=== PATIENT | male | born 1940 | race Caucasian/White ===

== ENCOUNTER → 2017-01-08 | Outpatient (CLI) | payer MEDICARE ==
[~2017-01-08] MED LIST: AMLO10TA82 PO; ASP81TEC PO; CLN.1T PO; HYDR-3156 PO; LOSA100T7 PO; MAGN400C PO; METR1KIT2 TP; MULT1CAP27 PO; PROP150T2 PO; PSYL1PAC15 PO; RIVA20TA2 PO; WRF3T PO
--- NOTE | 2017-01-08 12:54 | Diagnostic Imaging Report ---
CLINICAL INDICATION: Patient with abnormal lab work. COMPARISONS: None. FINDINGS: THYROID NODULES: There is no measurable nodule seen. THYROID GLAND: The thyroid gland is diffusely heterogeneous and enlarged. Otherwise, the thyroid gland has normal shape and normal Doppler appearance. The right lobe measures 6.7 cm x 3.6 cm x 4.1 cm and the left lobe measures 5.7 cm x 2.8 cm x 3.2 cm in their three dimensions. ISTHMUS: The isthmus is heterogeneous and mildly thickened measures 5 mm in thickness. IMPRESSION: Heterogeneous and enlarged thyroid gland with no significant abnormal Doppler flow. Dictated by: Dictated on workstation # [id number]
== END ==
LOC: RAD 08:43
PROVIDERS: ATTEND Internal Medicine
DX: E04.9 Nontoxic goiter, unspecified (principal)
CPT/HCPCS: 76536

== ENCOUNTER 2017-05-25 02:35 | Inpatient (IN) | payer MEDICARE ==
[2017-05-25] VITALS (7 sets, daily range): BP systolic 124–162; BP diastolic 67–91
[~2017-05-25] VITALS: Ht 177.8 cm; Wt 82.1 kg
--- OUTSIDE RECORDS SUMMARY | 2017-05-25 02:40 | XMS REPORT ---
Author Author IVETH BOATENG Organization [employer] Address Unknown Phone Unavailable Care Team Providers Care Claim Review Medical Director Name Role Phone IVETH BOATENG CP Unavailable Allergies No Known Allergies Problems Problem Type Condition Code Onset Dates Condition Status Problem ZOSTAVAX DX V05.8 Active Problem Need for prophylactic vaccination and inoculation, Influenza V04.81 Active Medications No Known Medications Results No Known Results Summary Purpose [employer] Submission
--- OUTSIDE RECORDS SUMMARY | 2017-05-25 02:40 | XMS REPORT | Clinical Summary ---
Author Author [facility] Organization [facility] Address Unknown Phone Unavailable Care Team Providers Care Services Program Manager Name Role Phone Kota Shepard MD PCP Source Comments Some departments are not documenting in the electronic medical record. If you do not see the information that you expected, contact Release of Information in the Health Information Management department at [phone] for further assistance in locating additional records.[facility] Allergies No Known Allergies Current Medications Prescription Sig. Disp. Refills Start End Date Status Date losartan (COZAAR) 100 mg TAKE ONE TABLET BY MOUTH 30 Each 5 10/27/19 Active PO tablet EVERY DAY 10 amLODIPine (NORVASC) 10 Take 10 mg by mouth Active mg tablet daily. cloNIDine HCl (CATAPRESS) Take 0.1 mg by mouth Active 0.1 mg tablet twice daily. HYDRALAZINE HCL Take 12.5 mg by mouth Active (HYDRALAZINE PO) twice daily. metroNIDAZOLE(+) Apply to affected area Active (METROGEL) 0.75 % topical daily. gel propafenone (RYTHMOL) 150 Take 150 mg by mouth Active mg tablet three times daily. Take 1 Tab Morning, Afternnon, and Night WARFARIN SODIUM (WARFARIN Take 8 mg by mouth daily. Active PO) aspirin EC 81 mg tablet Take 81 mg by mouth Active daily. magnesium oxide (MAG-OX) Take 400 mg by mouth Active 400 mg tablet daily. PSYLLIUM SEED (WITH Take by mouth daily. Active SUGAR) (METAMUCIL PO) Active Problems Problem Noted Date Typical atrial flutter (HCC) 07/05/2015 Essential hypertension 07/04/2015 PAF (paroxysmal atrial fibrillation) ([facility]) 07/04/2015 Overview: a. Has never undergone a cardioversion. b. Previously placed on sotalol as well as metoprolol. c. Last 2-D echocardiogram with Doppler done in 2006 showed normal LV function with an estimated ejection fraction of 60 percent. His left atrial size was Noted to be 3.92 cm, which was read as normal. There was mild mitral regurgitation present and no other abnormalities seen. PA pressure was 35 mmHg. d. Nuclear stress test done in 2006 that revealed normal LV function, estimated ejection fraction of 65 percent. No segmental wall motion abnormalities were seen.The patient exercised for 9 minutes 55 seconds, achieving 100 percent of maximum expected heart rate. There was no reversible ischemia seen. E. 03/20/09-Exercise Echo- EF 60%; Was Negative for Ischemia; trace MR; trace DE; trace AR; trace TR; 25 mmHg PAP; normal diastolic function Essential tremor 07/04/2015 Mixed hyperlipidemia 07/04/2015 Social History Tobacco Use Types Packs/Day Years Used Date Never Assessed Sex Assigned at Date Recorded Not on file Last Filed Vital Signs Vital Sign Reading Time Taken Blood Pressure 116/74 07/05/2015 8:56 AM CDT Pulse 57 07/05/2015 8:56 AM CDT Temperature - - Respiratory Rate - - Oxygen Saturation - - Inhaled Oxygen - - Concentration Weight 80.5 kg (177 lb 6.4 oz) 07/05/2015 8:56 AM CDT Height 177.8 cm (5' 10") 07/05/2015 8:56 AM CDT Body Mass Index 25.45 07/05/2015 8:56 AM CDT Plan of Treatment Health Maintenance Due Date Last Done Comments PHYSICAL (COMPREHENSIVE) 08/14/1947 EXAM PERTUSSIS VACCINE 08/14/1951 TETANUS VACCINE 1957 SHINGLES VACCINE 2000 PREVNAR/PNEUMOVAX (#1) 2005 INFLUENZA VACCINE 11/17/2017 Results Not on filefrom Last 3 Months
--- OUTSIDE RECORDS SUMMARY | 2017-05-25 02:40 | XMS REPORT | Continuity of Care Document ---
Author Author [facility] Address Unknown Phone Unavailable Allergies Active Description Code Type Severity Reaction Onset Reported/Identified Relationship to Patient Clinical Status Yes No Known Drug Allergies [id number] Drug Allergy Mild N/A 11/11/2008 Medications There is no data. Problems Date Dx Coded Attending Type Code Diagnosis Diagnosed By 11/15/2011 IVETH BOATENG DO V05.8 ZOSTAVAX DX 11/15/2011 V05.8 ZOSTAVAX DX 06/03/2012 Ot 276.8 HYPOPOTASSEMIA 06/03/2012 Ot 401.9 HYPERTENSION NOS 06/03/2012 Ot 416.8 CHR PULMON HEART DIS NEC 06/03/2012 Ot 427.31 ATRIAL FIBRILLATION 06/03/2012 Ot 427.69 PREMATURE BEATS NEC 06/03/2012 Ot 794.30 ABN CARDIOVASC STUDY NOS 06/03/2012 Ot V58.61 ANTICOAGULANTS,LT,CURRENT USE 06/03/2012 Ot V58.69 OTH MED,LT, CURRENT USE 11/24/2012 OTHER, UNLISTED Ot V57.1 PHYSICAL THERAPY NEC 11/24/2012 OTHER, UNLISTED Ot V58.78 AFTERCARE POST SURGERY MUSCULOSKELETAL S 12/29/2012 IVETH BOATENG DO V04.81 FLU SHOT 02/23/2013 TERRY BEAR MD Ot V45.4 ARTHRODESIS STATUS 02/23/2013 TERRY BEAR MD Ot V57.1 PHYSICAL THERAPY NEC 11/06/2015 Ot 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 11/06/2015 Ot 397.0 TRICUSPID VALVE DISEASE 11/06/2015 Ot 401.9 HYPERTENSION NOS 11/06/2015 Ot 427.31 ATRIAL FIBRILLATION 11/06/2015 Ot 429.3 CARDIOMEGALY 11/06/2015 Ot 401.9 HYPERTENSION NOS 11/06/2015 Ot 427.31 ATRIAL FIBRILLATION 11/07/2015 FERMIN MEZA MD Ot E78.2 MIXED HYPERLIPIDEMIA 11/07/2015 FERMIN MEZA MD Ot I10 ESSENTIAL (PRIMARY) HYPERTENSION 11/07/2015 FERMIN MEZA MD Ot I48.0 PAROXYSMAL ATRIAL FIBRILLATION 11/07/2015 FERMIN MEZA MD Ot R07.9 CHEST PAIN, UNSPECIFIED 11/29/2015 FERMIN MEZA MD Ot E78.2 MIXED HYPERLIPIDEMIA 11/29/2015 FERMIN MEZA MD Ot I10 ESSENTIAL (PRIMARY) HYPERTENSION 11/29/2015 FERMIN MEZA MD Ot I48.0 PAROXYSMAL ATRIAL FIBRILLATION 11/29/2015 FERMIN MEZA MD Ot R07.9 CHEST PAIN, UNSPECIFIED 12/07/2015 FERMIN MEZA MD Ot E78.2 MIXED HYPERLIPIDEMIA 12/07/2015 FERMIN MEZA MD Ot I10 ESSENTIAL (PRIMARY) HYPERTENSION 12/07/2015 FERMIN MEZA MD Ot I48.0 PAROXYSMAL ATRIAL FIBRILLATION 12/07/2015 FERMIN MEZA MD Ot R07.9 CHEST PAIN, UNSPECIFIED 01/30/2017 LACIE AGUILAR MD Ot E04.9 NONTOXIC GOITER, UNSPECIFIED 02/05/2017 LACIE AGUILAR MD Ot E04.9 NONTOXIC GOITER, UNSPECIFIED Procedures There is no data. Results There is no data. Encounters ACCT No. Visit Date/Time Discharge Status Pt. Type Provider Facility Loc./Unit Complaint [id number] 12/29/2012 15:36:00 12/29/2012 23:59:59 CLS Outpatient KILO IVETH Oscar [id number] 11/15/2011 10:16:00 11/15/2011 23:59:59 CLS Outpatient [id number] 01/08/2017 08:43:00 01/08/2017 23:59:59 CLS Outpatient LACIE AGUILAR MD [facility] RAD ENLARGED THYROID [id number] 11/06/2015 10:49:00 11/06/2015 23:59:59 CLS Outpatient FERMIN MEZA MD [facility] CARD CHEST PAIN,HTN,PAF, PALPITATIONS [id number] 01/12/2013 08:30:00 02/23/2013 11:13:00 DIS Outpatient TERRY BEAR MD [facility] REHAB L ANKLE ARTHRODIIS [id number] 11/10/2012 08:00:00 11/24/2012 09:42:00 DIS Outpatient OTHER, UNLISTED [facility] REHAB L ANKLE ARTHRODENT [id number] 05/25/2017 02:37:00 ACT Emergency HARRISON VICENTE CONSUELO Oscar [facility] ER COUGH UP BLOOD [id number] 06/03/2012 07:01:00 Document Registration [id number] 04/15/2012 08:09:00 Document Registration [id number] 04/13/2012 08:46:00 Document Registration [id number] 12/06/2016 13:40:00 12/06/2016 23:59:59 CLS Outpatient [facility]
--- OUTSIDE RECORDS SUMMARY | 2017-05-25 02:40 | XMS REPORT ---
Author Author IVETH BOATENG [facility] [employer] Address Unknown Phone Unavailable Care Team Providers Care Medical Care Evaluation Specialist Name Role Phone IVETH BOATENG CP Unavailable Allergies No Known Allergies Problems Problem Type Condition Code Onset Dates Condition Status Problem ZOSTAVAX DX V05.8 Active Assessment Encounter for immunization Z23 Active Problem Need for prophylactic vaccination and inoculation, Influenza V04.81 Active Medications No Known Medications Procedures Procedure Coding System Code Date SINGLE IMMUNIZATION ADMIN CPT-4 50963 Jan 13, 2015 FLUARIX QUAD (3 & UP)-GSK-2014 CPT-4 06461 Jan 13, 2015 Results No Known Results Immunizations Vaccine Administration Date FLUARIX QUAD (3 & UP)-GSK-2014Jan 13, 2015 Summary Purpose eClinicalWorks Submission
[2017-05-25] MEDS ORDERED: TAMS0.4C2 PO (03:18)
[2017-05-25] MEDS ORDERED: WARF4TAB70 (03:18)
[2017-05-25 04:09] LABS: BASOPHILS % (AUTO) 1 % (0-10); EOSINOPHILS # (AUTO) 0.2 10^3/uL (0.0-0.3); EOSINOPHILS % (AUTO) 4 % (0-10); HEMATOCRIT 43 % (40-54); HEMOGLOBIN 14.8 G/DL (13.3-17.7); LYMPHOCYTES # (AUTO) 1.1 X 10^3 (1.0-4.0); LYMPHOCYTES % (AUTO) 20 % (12-44); MEAN CORPUSCULAR HEMOGLOBIN 29 PG (25-34); MEAN CORPUSCULAR HGB CONC 34 G/DL (32-36); MEAN CORPUSCULAR VOLUME 84 FL (80-99); MEAN PLATELET VOLUME 9.8 FL (7.4-10.4); MONOCYTES # (AUTO) 0.6 X 10^3 (0.0-1.0); MONOCYTES % (AUTO) 12 % (0-12); NEUTROPHILS # (AUTO) 3.5 X 10^3 (1.8-7.8); NEUTROPHILS % (AUTO) 65 % (42-75); PLATELET COUNT 157 10^3/uL (130-400); RED BLOOD COUNT 5.14 10^6/uL (4.35-5.85); RED CELL DISTRIBUTION WIDTH 13.9 % (10.0-14.5); WHITE BLOOD COUNT 5.5 10^3/uL (4.3-11.0)
[2017-05-25 04:25] LABS: INR 2.1 (0.8-1.4); PROTHROMBIN TIME PATIENT 23.3 SEC (12.2-14.7)
[2017-05-25 04:33] LABS: ALANINE AMINOTRANSFERASE 9 U/L (0-55); ALBUMIN 4.4 GM/DL (3.2-4.5); ALKALINE PHOSPHATASE 75 U/L (40-136); BILIRUBIN,TOTAL 0.7 MG/DL (0.1-1.0); BUN/CREATININE RATIO 17; CALCIUM 9.1 MG/DL (8.5-10.1); CARBON DIOXIDE 27 MMOL/L (21-32); CHLORIDE 105 MMOL/L (98-107); CREATININE SERUM 0.76 MG/DL (0.60-1.30); GFR ESTIMATED > 60; GLUCOSE 106 MG/DL (70-105); POTASSIUM 3.4 MMOL/L (3.6-5.0); SODIUM 140 MMOL/L (135-145); TOTAL PROTEIN 7.5 GM/DL (6.4-8.2)
[2017-05-25] MEDS ORDERED: cefTRIAXone INJECTION 1,000 MG in NS (IVPB) 100 ML IV ONE (06:30)
--- NOTE | 2017-05-25 06:56 | ED General ---
General Chief Complaint: Abdominal/GI Problems Stated Complaint: HEMOPTYSIS; RML/RLL INFILTRATE COUMADIN THERAPY Nursing Triage Note: pt reports coughing up blood since approx. 199905/24/17 Nursing Sepsis Screen: No Definite Risk Source of Information: Patient Exam Limitations: No Limitations History of Present Illness Date Seen by Provider: May 25, 2017 Time Seen by Provider: 03:35 Initial Comments PT STATES HE HAS BEEN COUGHING UP BLOOD SINCE Friday05/23/17 STATES HE HAS HAD "RATTLING" IN HIS CHEST FOR THE LAST 2 DAYS NO CHEST PAIN OR SHORTNESS OF BREATH NO FEVER NO SWELLING IN LEGS/ FEET OR PAIN IN CALVES NO ABDOMINAL PAIN OR NAUSEA/VOMITING NO NOSE BLEEDS OR ORAL SORES, ETC. NO DIZZINESS PT IS ON COUMADIN --LAST PROTIME WAS LAST WEEK AND STATES HIS BLOOD WAS "THICK" . BUT NO CHANGES IN DOSE NO HISTORY OF SIMILAR PCP: DR. AGUILAR SCOOPING MACHINE TENDER: DR. MEZA Allergies and Home Medications Allergies Coded Allergies: No Known Drug Allergies (Unverified , 11/11/08) Home Medications Amlodipine Besylate 10 Mg Tablet, 10 EACH PO DAILY, (Reported) Aspirin 81 Mg Tabec, 81 MG PO DAILY, (Reported) Clonidine Hcl 0.1 Mg Tab, 0.5 EACH PO DAILY, (Reported) Clonidine Hcl 0.1 Mg Tab, 0.1 MG PO HS, (Reported) Hydralazine Hcl 25 Mg Tablet, 12.5 MG PO BID, (Reported) Losartan Potassium 100 Mg Tablet, 100 MG PO DAILY, (Reported) Magnesium Oxide 400 Mg Capsule, 400 MG PO DAILY, (Reported) Metronidazole/Skin Cleansr #23 1 Each Kit.cl.gel, 1 EACH TP DAILY, (Reported) Multivitamins 1 Each Capsule, 1 EACH PO DAILY, (Reported) Propafenone Hcl 150 Mg Tablet, 150 MG PO BID, (Reported) Propafenone Hcl 150 Mg Tablet, 75 MG PO noon, (Reported) Patient Home Medication List Home Medication List Reviewed: Yes Review of Systems Constitutional: no symptoms reported, No chills, No diaphoresis, No dizziness, No fever, No malaise, No weakness EENTM: no symptoms reported, No hoarseness, No mouth pain, No epistaxis, No throat pain Respiratory: see HPI, No dyspnea on exertion, hemoptysis, No orthopnea, No short of breath, No wheezing Cardiovascular: no symptoms reported, No chest pain, No edema, No palpitations , No syncope Gastrointestinal: see HPI, No abdominal pain, No loss of appetite, No melena, No nausea, No vomiting Genitourinary: no symptoms reported Musculoskeletal: no symptoms reported Skin: no symptoms reported Psychiatric/Neurological: No Symptoms Reported Hematologic/Lymphatic: See HPI Immunological/Allergic: no symptoms reported Past Hegjcib-Ghrehw-Tttyse Hx Patient Social History Alcohol Use: Denies Use Recreational Drug Use: No Smoking Status: Never a Smoker 2nd Hand Smoke Exposure: No Recent Foreign Travel: No Contact w/Someone Who Travel: No Recent Infectious Disease Expo: No Recent Hopitalizations: No Immunizations Up To Date Date of Pneumonia Vaccine: Mar 18, 2012 Seasonal Allergies Seasonal Allergies: No Past Medical History Surgeries: Yes (hernia, cardiac ablation) Abdominal, Cardiac, Orthopedic Respiratory: No Cardiac: Yes (cardiac ablation) Atrial Fibrillation, High Cholesterol, Hypertension Neurological: No Sexually Transmitted Disease: No Genitourinary: Yes Prostate Problems Gastrointestinal: No Musculoskeletal: No Endocrine: No HEENT: No Cancer: No Psychosocial: No Integumentary: No Blood Disorders: No Physical Exam Vital Signs Vital Signs - First Documented 05/25/17 03:10 Temp 97.7 Pulse 77 Resp 16 B/P (MAP) 168/110 (129) Pulse Ox 96 O2 Delivery Room Air Capillary Refill : Less Than 3 Seconds General Appearance: No Apparent Distress, WD/WN HEENT: PERRL/EOMI, Normal ENT Inspection, Pharynx Normal, Other ( NO BLOOD IN NARES, IN MOUTH OR POSTERIOR PHARYNX. ) Neck: Full Range of Motion, Normal Inspection, Non Tender, Supple Respiratory: Normal Breath Sounds, No Accessory Muscle Use, No Respiratory Distress Cardiovascular: Regular Rate, Rhythm, No Edema, No JVD, No Murmur, Normal Peripheral Pulses Gastrointestinal: Normal Bowel Sounds, No Organomegaly, No Pulsatile Mass, Non Tender, Soft Extremity: Normal Inspection, Normal Range of Motion Neurologic/Psychiatric: Alert, Oriented x3, No Motor/Sensory Deficits, Normal Mood/Affect, banana loader II-XII Norm as Tested Skin: Normal Color, Warm/Dry Progress/Results/Core Measures Suspected Sepsis Recent Fever Within 48 Hours: No Infection Criteria Present: None New/Unexplained Altered Menta: No Sepsis Screen: No Definite Risk Sepsis Diagnosis: SIRS Temperature:97.7 Pulse: 77 Respiratory Rate: 16 Laboratory Tests 05/25/17 04:00: White Blood Count 5.5 Blood Pressure 168 /110 Mean: 129 Laboratory Tests 05/25/17 04:00: Creatinine 0.76, INR Comment 2.1H, Platelet Count 157, Total Bilirubin 0.7 Results/Orders Lab Results Laboratory Tests Test 05/25/17 04:00 Range/Units White Blood Count 5.5 4.3-11.0 10^3/uL Red Blood Count 5.14 4.35-5.85 10^6/uL Hemoglobin 14.8 13.3-17.7 G/DL Hematocrit 43 40-54 % Mean Corpuscular Volume 84 80-99 FL Mean Corpuscular Hemoglobin 29 25-34 PG Mean Corpuscular Hemoglobin Concent 34 32-36 G/DL Red Cell Distribution Width 13.9 10.0-14.5 % Platelet Count 157 130-400 10^3/uL Mean Platelet Volume 9.8 7.4-10.4 FL Neutrophils (%) (Auto) 65 42-75 % Lymphocytes (%) (Auto) 20 12-44 % Monocytes (%) (Auto) 12 0-12 % Eosinophils (%) (Auto) 4 0-10 % Basophils (%) (Auto) 1 0-10 % Neutrophils # (Auto) 3.5 1.8-7.8 X 10^3 Lymphocytes # (Auto) 1.1 1.0-4.0 X 10^3 Monocytes # (Auto) 0.6 0.0-1.0 X 10^3 Eosinophils # (Auto) 0.2 0.0-0.3 10^3/uL Basophils # (Auto) 0.0 0.0-0.1 10^3/uL Prothrombin Time 23.3 H 12.2-14.7 SEC INR Comment 2.1 H 0.8-1.4 Activated Partial Thromboplast Time 38 H 24-35 SEC Sodium Level 140 135-145 MMOL/L Potassium Level 3.4 L 3.6-5.0 MMOL/L Chloride Level 105 98-107 MMOL/L Carbon Dioxide Level 27 21-32 MMOL/L Anion Gap 8 5-14 MMOL/L Blood Urea Nitrogen 13 7-18 MG/DL Creatinine 0.76 0.60-1.30 MG/DL Estimat Glomerular Filtration Rate > 60 BUN/Creatinine Ratio 17 Glucose Level 106 H 70-105 MG/DL Calcium Level 9.1 8.5-10.1 MG/DL Total Bilirubin 0.7 0.1-1.0 MG/DL Aspartate Amino Transf (AST/SGOT) 21 5-34 U/L Alanine Aminotransferase (ALT/SGPT) 9 0-55 U/L Alkaline Phosphatase 75 40-136 U/L Total Protein 7.5 6.4-8.2 GM/DL Albumin 4.4 3.2-4.5 GM/DL My Orders Orders - CONSUELO TERRY DO Saline Lock/Iv-Start (05/25/17 03:35) Monitor-Rhythm Ecg Trace Only (05/25/17 03:35) Cbc With Automated Diff (05/25/17 03:35) Comprehensive Metabolic Panel (05/25/17 03:35) Protime With Inr (05/25/17 03:35) Partial Thromboplastin Time (05/25/17 03:35) Sputum Culture (05/25/17 03:35) Chest Pa/Lat (2 View) (05/25/17 03:35) Ct Angio Chst/Abd/Pelv W (05/25/17 04:47) Ceftriaxone Injection (Rocephin Injectio (05/25/17 06:30) Vital Signs/I&O 05/25/17 05/25/17 03:10 06:52 Temp 97.7 97.0 Pulse 77 65 Resp 16 16 B/P (MAP) 168/110 (129) 161/99 (129) Pulse Ox 96 99 O2 Delivery Room Air Room Air Capillary Refill : Less Than 3 Seconds Blood Pressure Mean: 129 Progress Note : Progress Note PT CONSTANTLY "SPITTING UP" BLOOD--AT LEAST A CUP OF LORA BLOOD, WITH A LITTLE MUCOUS, DURING ET STAY--NOT GAGGING OR VOMITING. NO DYSPNEA, AND NO ACTUAL COUGH NO DETERIORATION IN PT'S CONDITION DURING ER STAY Diagnostic Imaging Comments CXR--NO ACUTE PROCESS, PENDING RADIOLOGIST REVIEW CT CHEST AND ABDOMEN/PELVIS ANGIOGRAM--NO P.E. MILD NON-SPECIFIC GROUND GLASS OPACITIES IN RLL AND RML. POSSIBLE PULMONARY EDEMA, HEMORRHAGE OR AN ACUTE INFECTIOUS/INFLAMMATORY PROCESS. ABDOMEN/PELVIS--NO ACUTE PROCESS PER [facility] VIA FAX @ [phone] Reviewed: Reviewed by Ms Departure Communication (Admissions) [id number]--SPOKE WITH DR. NATALIE, ACCEPTS PT FOR ADMIT. WILL CONSULT DR. MALDONADO [id number]--ATTEMPTING TO CONTACT DR. MALDONADO, MESSAGE LEFT ON CELL PHONE. Impression Primary Impression: Hemoptysis Additional Impressions: RLL/RML INFILTRATE COUMADIN THERAPY Disposition: ADMITTED INPATIENT Condition: Stable Admissions Decision to Admit Reason: Admit from ER (General) Decision to Admit/Date: May 25, 2017 Time/Decision to Admit Time: 06:20 Departure-Patient Inst. Referrals: LACIE AGUILAR MD (PCP/Family) Primary Care Physician CONSUELO TERRY DO May 25, 2017 06:56
--- NOTE | 2017-05-25 06:58 | Diagnostic Imaging Report ---
INDICATION: Coughing up blood. FINDINGS: There are some patchy opacity demonstrated within the right middle lobe suggestive of infectious infiltrates. Left lung clear. Heart size normal. There is no evidence for failure. There is no effusion or pneumothorax. There are degenerative features present within the spine. IMPRESSION: 1. Patchy right pulmonary infiltrates suggests inflammatory/infectious process. Left lung appears clear. Dictated by: Dictated on workstation # [id number]
[2017-05-25] MEDS ORDERED: AZITHROMYCIN 500 MG/NS 250 ML IVPB IV NR ×2 (08:00)
[2017-05-25] MEDS ORDERED: CATHETER FLUSH 10 ML SYR IV PRN (08:00)
--- NOTE | 2017-05-25 08:37 | Diagnostic Imaging Report ---
PROCEDURE: CT angiography of the chest with contrast and CT abdomen and pelvis with contrast. TECHNIQUE: Multiple contiguous axial images were obtained through the chest, abdomen and pelvis after administration of intravenous contrast. Reconstructed MIP CT angiography acquisitions of the aorta were then performed. INDICATION: Hemoptysis. Comparison made with prior chest radiograph from May 25, 2017. FINDINGS: The thoracic aorta is normal in caliber without evidence of dissection or aneurysm. There is mild aortic atherosclerotic disease. There is no evidence of a filling defect within the pulmonary arteries to suggest pulmonary embolism. Heart size is normal. There is no pericardial effusion. There are calcified hilar and mediastinal lymph nodes but no evidence of pathologic noncalcified thoracic adenopathy. There are some ill-defined essentially groundglass nodular opacities demonstrated within the right lower lobe that have appearance most compatible with an infectious/inflammatory process. There is also small degree of involvement present within the right middle lobe. No solid pulmonary mass demonstrated. There is no effusion or evidence of a pneumothorax. Supraclavicular soft tissues demonstrate heterogeneous enlargement of the thyroid. The liver demonstrates no evidence of a focal intrahepatic abnormality. The gallbladder is nondistended without radiodense gallstones. There is no abnormal biliary dilatation. Spleen unremarkable. There is a small splenule. Pancreas demonstrates no focal abnormality. There is no adrenal mass. The kidneys demonstrate a left renal cyst and are otherwise unremarkable. The small and large bowel are normal in caliber without obstruction. There is no focal abnormal bowel thickening demonstrated. There is a large degree of stool within the colon suggesting constipation. The appendix is normal. There is no free air, free fluid or abscess. There is enlargement of the prostate. Urinary bladder unremarkable. Patient appears to have had prior hernia repair at both of the inguinal regions. There is a small residual left-sided hernia. There are multilevel degenerative endplate changes and facet arthropathy present throughout the spine but there is no evidence to suggest an acute osseous injury or suspicious marrow replacing lesion. IMPRESSION: 1. Thoracic and abdominal aorta are normal in caliber without dissection or aneurysm. 2. Inflammatory appearing infiltrate within the right lower lobe and right middle lobe. No pulmonary mass evident. 3. Calcified mediastinal and hilar lymph nodes. No pathologic thoracic adenopathy evident. 4. No evidence of pulmonary embolus. 5. Heterogeneous enlargement of the thyroid. 6. No acute inflammatory or obstructive process within the abdomen or pelvis. There is a large degree of stool within the colon suggesting constipation. Note is made of enlargement of the prostate. 7. Multilevel degenerative changes within the spine without acute or suspicious osseous abnormality. Dictated by: Dictated on workstation # [id number]
--- NOTE | 2017-05-25 11:14 | History & Physical-Hospitalist ---
History of Present Illness HPI/Chief Complaint Pt is a 76yoCM with a PMH of HTN and a-fib on chronic anticoagulation who presented to the ER with CC of hemoptysis. He states he was at a concert on 05/23 evening and noticed he developed a cough. It continued to worsen and then started to cough up "hunks of blood" on the evening of 05/24. It continued throughout the night and he was coughing up cups at a time. He ultimately decided to seek evaluation in the ER for this. A CT chest was done which revealed right sided infiltrate with infalmmatory changes. He denies any history of hemoptysis. He is a former smoker but quit 37 years ago (previously smoked 3ppd). He denies any fevers or sick contacts. He was admitted for antibiotics and further evaluation of hemoptysis. This morning he states he is feeling better and his hemoptysis has decreased significantly. Of note he was told on 05/19 that his INR was low at 1.8 so he had been taking an extra 4mg with his daily 8mg dose to help rise it. Source: patient, family Date Seen 05/25/17 Time Seen by Provider: 10:15 Attending Physician Micky Colvin MD PCP Micky Colvin MD Referring Physician Date of Admission May 25, 2017 at 6:20 am Home Medications & Allergies Home Medications Reviewed patient Home Medication Reconciliation performed by pharmacy medication reconciliations c2 tactical analysis technician and/or nursing. Patients Allergies have been reviewed. Allergies Allergies Coded Allergies No Known Drug Allergies (Unverified05/25/17) Past Dpceunw-Rzwtpc-Agtvlm Hx Past Med/Social Hx: Reviewed Nursing Past Med/Soc Hx, Reviewed and Corrections made Patient Social History Marrital Status: Alcohol Use: Denies Use Recreational Drug Use: No Smoking Status: Former Smoker Former Smoker, Quit: July 07, 1979 Type Used: Cigarettes 2nd Hand Smoke Exposure: No Physical Abuse Screen: No Sexual Abuse: No Recent Foreign Travel: No Contact w/other who traveled: No Recent Hopitalizations: No Recent Infectious Disease Expo: No Immunizations Up To Date Date of Pneumonia Vaccine: Mar 18, 2012 Seasonal Allergies Seasonal Allergies: No Past Medical History Surgeries: Abdominal, Cardiac, Orthopedic Cardiac: Atrial Fibrillation, High Cholesterol, Hypertension Sexually Transmitted Disease: No Genitourinary: Prostate Problems Gastrointestinal: Abdominal Hernia, Ulcer History of Blood Disorders: No Family History Cardiovascular disease 19 FATHER 19 MOTHER Dementia 19 MOTHER FH: gastric ulcer 19 FATHER Thyroid disease DAUGHTER Heart Disease Review of Systems Constitutional: No chills, No fever EENTM: No blurred vision, No double vision, No nose congestion, No throat pain Respiratory: cough, No dyspnea on exertion, hemoptysis, No short of breath Cardiovascular: No chest pain, No edema, No palpitations Gastrointestinal: No abdominal pain, No constipation, No diarrhea, No nausea, No vomiting Genitourinary: No dysuria, No frequency Musculoskeletal: No joint pain, No muscle pain Skin: No lesions, No rash Psychiatric/Neurological: Denies Headache, Denies Numbness, Denies Tingling All Other Systems Reviewed Negative Unless Noted: Yes (Negative excepted noted.) Physical Exam Physical Exam Vital Signs Vital Signs - First Documented 05/25/17 05/25/17 03:10 11:02 Temp 97.7 Pulse 77 Resp 16 B/P (MAP) 168/110 (129) Pulse Ox 96 O2 Delivery Room Air FiO2 21 Capillary Refill : Less Than 3 Seconds General Appearance: No Apparent Distress, WD/WN HEENT: PERRL/EOMI, Moist Mucous Membranes Neck: Non Tender, Supple Respiratory: No Accessory Muscle Use, No Respiratory Distress, Crackles (right base) Cardiovascular: Regular Rate, Rhythm, No Murmur Gastrointestinal: Normal Bowel Sounds, Non Tender, Soft Extremity: Normal Capillary Refill, No Calf Tenderness, No Pedal Edema Neurologic/Psychiatric: Alert, Oriented x3, No Motor/Sensory Deficits, Normal Mood/Affect Skin: Normal Color, Warm/Dry Results Results/Procedures Labs Laboratory Tests 05/25/17 04:00 Patient resulted labs reviewed. Imaging: Reviewed Imaging Films, Reviewed Imaging Report Imaging Date of Exam: 05/25/17 CT ANGIO CHST/ABD/PELV W PROCEDURE: CT angiography of the chest with contrast and CT abdomen and pelvis with contrast. TECHNIQUE: Multiple contiguous axial images were obtained through the chest, abdomen and pelvis after administration of intravenous contrast. Reconstructed MIP CT angiography acquisitions of the aorta were then performed. INDICATION: Hemoptysis. Comparison made with prior chest radiograph from May 25, 2017. FINDINGS: The thoracic aorta is normal in caliber without evidence of dissection or aneurysm. There is mild aortic atherosclerotic disease. There is no evidence of a filling defect within the pulmonary arteries to suggest pulmonary embolism. Heart size is normal. There is no pericardial effusion. There are calcified hilar and mediastinal lymph nodes but no evidence of pathologic noncalcified thoracic adenopathy. There are some ill-defined essentially groundglass nodular opacities demonstrated within the right lower lobe that have appearance most compatible with an infectious/inflammatory process. There is also small degree of involvement present within the right middle lobe. No solid pulmonary mass demonstrated. There is no effusion or evidence of a pneumothorax. Supraclavicular soft tissues demonstrate heterogeneous enlargement of the thyroid. The liver demonstrates no evidence of a focal intrahepatic abnormality. The gallbladder is nondistended without radiodense gallstones. There is no abnormal biliary dilatation. Spleen unremarkable. There is a small splenule. Pancreas demonstrates no focal abnormality. There is no adrenal mass. The kidneys demonstrate a left renal cyst and are otherwise unremarkable. The small and large bowel are normal in caliber without obstruction. There is no focal abnormal bowel thickening demonstrated. There is a large degree of stool within the colon suggesting constipation. The appendix is normal. There is no free air, free fluid or abscess. There is enlargement of the prostate. Urinary bladder unremarkable. Patient appears to have had prior hernia repair at both of the inguinal regions. There is a small residual left-sided hernia. There are multilevel degenerative endplate changes and facet arthropathy present throughout the spine but there is no evidence to suggest an acute osseous injury or suspicious marrow replacing lesion. IMPRESSION: 1. Thoracic and abdominal aorta are normal in caliber without dissection or aneurysm. 2. Inflammatory appearing infiltrate within the right lower lobe and right middle lobe. No pulmonary mass evident. 3. Calcified mediastinal and hilar lymph nodes. No pathologic thoracic adenopathy evident. 4. No evidence of pulmonary embolus. 5. Heterogeneous enlargement of the thyroid. 6. No acute inflammatory or obstructive process within the abdomen or pelvis. There is a large degree of stool within the colon suggesting constipation. Note is made of enlargement of the prostate. 7. Multilevel degenerative changes within the spine without acute or suspicious osseous abnormality. Assessment/Plan Admission Diagnosis Hemoptysis with pneumonia Admission Status: Inpatient Order (span 2 midnights) Reason for Inpatient Admission: significant hemoptysis with pneumonia, needs IV abx Diagnosis/Problems Diagnosis/Problems (1) Hemoptysis Status: Acute Assessment & Plan: Slowing Pulm consulted, appreciate recs Hold Warfarin Check INR in AM Discussed with patient's son Dallas (Cardiothoracic Surgeon in [place])- request all records to be sent to him (2) Pneumonia Status: Acute Assessment & Plan: Continue Rocephin and Azithro Sputum culture ordered Qualifiers: Pneumonia type: due to unspecified organism Laterality: right Lung location: lower lobe of lung Qualified Codes: J18.1 - Lobar pneumonia, unspecified organism (3) Essential (primary) hypertension Status: Chronic Assessment & Plan: BP within goal for age Home medications resumed (4) Atrial fibrillation Status: Chronic Assessment & Plan: On assisted anticoagulation with Warfarin Dr Marina consulted, appreciate recs Qualifiers: Atrial fibrillation type: chronic Qualified Codes: I48.2 - Chronic atrial fibrillation (5) Prophylactic measure Assessment & Plan: SCDs Reg Diet Saline lock Clinical Quality Measures DVT/VTE Risk/Contraindication: Risk Factor Score Per Nursin RFS Level Per Nursing on Admit: 3=High JASON ESTRADA MD May 25, 2017 11:14 am
[2017-05-25] MEDS ORDERED: RT-ALBUTEROL/IPRATROPIUM 3 ML (DUONEB) VIAL INH PRN (11:15)
--- NOTE | 2017-05-25 11:42 | Consultation-Cardiology ---
HPI-Cardiology Cardiology Consultation Date of Consultation 05/25/17 Date of Admission Time Seen by Provider: 11:37 Indication: hemoptysis HPI 76 years old gentleman with history of paroxysmal atrial fibrillation maintained on oral anticoagulation, has been doing well until yesterday when he started having hemoptysis with cough. reported feeling burning sensation in the retrosternal area, denied any palpitation, syncope or near-syncopal episode , patient was admitted, noted to have INR of 2.1. Right pulmonary infiltrate, started on antibiotic and feeling better, reporting improvement in his hemoptysis. Home Medications & Allergies Allergies: Coded Allergies: No Known Drug Allergies (Unverified , 05/25/17) Home Medication List Reviewed: Yes ZJP-Egllkj-Yrpjol Hx Patient Social History Marital Status: Employed/Student: retired Alcohol Use: Denies Use Recreational Drug Use: No Smoking Status: Former Smoker Type Used: Cigarettes 2nd Hand Smoke Exposure: No Recent Foreign Travel: No Recent Infectious Disease Expo: No Recent Hopitalizations: No Physical Abuse Screen: No Sexual Abuse: No Immunizations Up To Date Date of Pneumonia Vaccine: Mar 18, 2012 Past Medical History past medical history is discussed below Family Medical History Family History: 19 FATHER Cardiovascular disease FH: gastric ulcer 19 MOTHER Cardiovascular disease Dementia DAUGHTER Thyroid disease Constitutional: no symptoms reported, see HPI EENTM: see HPI, no symptoms reported Respiratory: see HPI, cough, No dyspnea on exertion, hemoptysis, No orthopnea, No phlegm, No short of breath, No stridor, No wheezing, No other Cardiovascular: see HPI, No chest pain, No edema, No Hx of Intervention, No palpitations, No syncope, No vascular heart diseas, No other Gastrointestinal: no symptoms reported, see HPI Genitourinary: no symptoms reported, see HPI Musculoskeletal: no symptoms reported, see HPI Skin: no symptoms reported, see HPI Psychiatric/Neurological: No Symptoms Reported, See HPI Reviewed Test Results Reviewed Test Results Lab Laboratory Tests Test 05/25/17 04:00 Range/Units White Blood Count 5.5 4.3-11.0 10^3/uL Red Blood Count 5.14 4.35-5.85 10^6/uL Hemoglobin 14.8 13.3-17.7 G/DL Hematocrit 43 40-54 % Mean Corpuscular Volume 84 80-99 FL Mean Corpuscular Hemoglobin 29 25-34 PG Mean Corpuscular Hemoglobin Concent 34 32-36 G/DL Red Cell Distribution Width 13.9 10.0-14.5 % Platelet Count 157 130-400 10^3/uL Mean Platelet Volume 9.8 7.4-10.4 FL Neutrophils (%) (Auto) 65 42-75 % Lymphocytes (%) (Auto) 20 12-44 % Monocytes (%) (Auto) 12 0-12 % Eosinophils (%) (Auto) 4 0-10 % Basophils (%) (Auto) 1 0-10 % Neutrophils # (Auto) 3.5 1.8-7.8 X 10^3 Lymphocytes # (Auto) 1.1 1.0-4.0 X 10^3 Monocytes # (Auto) 0.6 0.0-1.0 X 10^3 Eosinophils # (Auto) 0.2 0.0-0.3 10^3/uL Basophils # (Auto) 0.0 0.0-0.1 10^3/uL Prothrombin Time 23.3 H 12.2-14.7 SEC INR Comment 2.1 H 0.8-1.4 Activated Partial Thromboplast Time 38 H 24-35 SEC Sodium Level 140 135-145 MMOL/L Potassium Level 3.4 L 3.6-5.0 MMOL/L Chloride Level 105 98-107 MMOL/L Carbon Dioxide Level 27 21-32 MMOL/L Anion Gap 8 5-14 MMOL/L Blood Urea Nitrogen 13 7-18 MG/DL Creatinine 0.76 0.60-1.30 MG/DL Estimat Glomerular Filtration Rate > 60 BUN/Creatinine Ratio 17 Glucose Level 106 H 70-105 MG/DL Calcium Level 9.1 8.5-10.1 MG/DL Total Bilirubin 0.7 0.1-1.0 MG/DL Aspartate Amino Transf (AST/SGOT) 21 5-34 U/L Alanine Aminotransferase (ALT/SGPT) 9 0-55 U/L Alkaline Phosphatase 75 40-136 U/L Total Protein 7.5 6.4-8.2 GM/DL Albumin 4.4 3.2-4.5 GM/DL Physical Exam Vital Signs Vital Signs - First Documented 05/25/17 05/25/17 03:10 11:02 Temp 97.7 Pulse 77 Resp 16 B/P (MAP) 168/110 (129) Pulse Ox 96 O2 Delivery Room Air FiO2 21 Capillary Refill : Less Than 3 Seconds General Appearance: No Apparent Distress, WD/WN Eyes: Bilateral Eye Normal Inspection, Bilateral Eye PERRL, Bilateral Eye EOMI HEENT: PERRL/EOMI, TMs Normal, Normal ENT Inspection, Pharynx Normal Neck: Full Range of Motion, Normal Inspection, Non Tender, Supple, Carotid Bruit Respiratory: Chest Non Tender, Lungs Clear, Normal Breath Sounds, No Accessory Muscle Use, No Respiratory Distress Cardiovascular: Regular Rate, Rhythm, No Edema, No Gallop, No JVD, No Murmur, Normal Peripheral Pulses Gastrointestinal: Normal Bowel Sounds, No Organomegaly, No Pulsatile Mass, Non Tender, Soft Back: Normal Inspection, No CVA Tenderness, No Vertebral Tenderness Extremity: Normal Capillary Refill, Normal Inspection, Normal Range of Motion, Non Tender, No Calf Tenderness, No Pedal Edema Neurologic/Psychiatric: Alert, Oriented x3, No Motor/Sensory Deficits, Normal Mood/Affect Skin: Normal Color, Warm/Dry Lymphatic: No Adenopathy A/P-Cardiology Admission Diagnosis Hemoptysis Pneumonia Persistent atrial fibrillation Chest pain nonspecific etiology Assessment/Plan Hemoptysis, right pulmonary infiltrate, started on antibiotic and Coumadin is on hold. Continue to monitor, reporting improvement. Pneumonia, started on Rocephin and azithromycin. Managed by primary care physician Paroxysmal atrial fibrillation-status post atrial fibrillation/flutter ablation with Dr. Saleh in January 2016. he underwent pulmonary vein isolation in addition atrial flutter ablation but he had 4 morphologies of atrial flutter and Dr. Saleh was unable to ablate them all, he was treated with propafenone, currently he is off propafenone and he is feeling well. No palpitation was noted, continue to hold Coumadin Chronic Coumadin therapy, INR 2.1, discontinue Coumadin for now, continue to monitor telemetry. X Chest pain nonspecific etiology. Continue to monitor at this time. Cardiac catheterization was done in May 2012 showing mild coronary artery disease nonobstructive disease. Continue to monitor Hypertension, on multiple medication, restart medication monitor. BPH, on Flomax and feeling better Hyperlipidemia, continue to monitor lipids Pulmonary hypertension-PA pressure 45 mm mercury per 2-D echocardiogram March 2012, I will repeat 2-D echocardiogram Mild bilateral carotid stenosis, ultrasound was done September 2016, continue to monitor Clinical Quality Measures DVT/VTE Risk/Contraindication: Risk Factor Score Per Nursin RFS Level Per Nursing on Admit: 3=High FERMIN MEZA MD May 25, 2017 11:42
[2017-05-25] MEDS: LOSARTAN 50 MG (COZAAR) TAB PO SCH (12:29)
[2017-05-25] MEDS: amLODIPine 10 MG (NORVASC) TAB PO SCH (12:30)
[2017-05-25] MEDS ORDERED: ANTACID SUSP 30 ML UDC (MYLANTA) PO PRN (13:15)
[2017-05-25] MEDS ORDERED: ACETAMINOPHEN 500 MG TAB (TYLENOL) PO PRN (13:15)
[2017-05-25] MEDS ORDERED: MILK OF MAGNESIA 400 MG/5 ML 30 ML UDC PO PRN (13:15)
[2017-05-25] MEDS ORDERED: ONDANSETRON 4 MG/2 ML (SDV) Z0FRAN IV PRN (13:15)
[2017-05-25] MEDS ORDERED: BENZONATATE 100 MG (TESSALON) CAPSULE PO PRN (13:15)
[2017-05-25] MEDS ORDERED: ACETAMINOPHEN 325 MG TABLET/CAPLET (TYLENOL) PO PRN (13:30)
[2017-05-25] MEDS ORDERED: ASPI-983 PO (16:15)
[2017-05-25] MEDS ORDERED: METR45GE9 TP (16:15)
[2017-05-25] MEDS ORDERED: AMLO10TA2 PO (16:15)
[2017-05-25] MEDS ORDERED: CLON0.1T PO (16:15)
[2017-05-25] MEDS ORDERED: MAGN400T6 PO (16:15)
[2017-05-25] MEDS ORDERED: PROP150T2 PO (16:15)
[2017-05-25] MEDS ORDERED: HYDR-3923 PO (16:15)
[2017-05-25] MEDS ORDERED: MULT1TAB69 PO (16:15)
[2017-05-25] MEDS ORDERED: LOSA100T28 PO (16:15)
[2017-05-25] MEDS ORDERED: TAMSULOSIN 0.4 MG (FLOMAX) CAP PO SCH (18:00)
[2017-05-25] MEDS: CATHETER FLUSH 10 ML SYR IV SCH ×2 (19:02→21:42)
[2017-05-25] MEDS: RT-ALBUTEROL/IPRATROPIUM 3 ML (DUONEB) VIAL INH SCH (20:14)
[2017-05-25] MEDS ORDERED: cloNIDine 0.1 MG (CATAPRES) TAB PO SCH (21:00)
[2017-05-25] MEDS: cloNIDine 0.1 MG (CATAPRES) TAB PO SCH (21:42)
[2017-05-25] MEDS: hydrALAZINE (APRESOLINE) 25 MG TAB PO SCH (21:42)
[2017-05-26 04:10] VITALS: BP 143/87
[2017-05-26 05:30] LABS: BASOPHILS % (AUTO) 0 % (0-10); EOSINOPHILS # (AUTO) 0.2 10^3/uL (0.0-0.3); EOSINOPHILS % (AUTO) 3 % (0-10); HEMATOCRIT 42 % (40-54); HEMOGLOBIN 14.5 G/DL (13.3-17.7); LYMPHOCYTES # (AUTO) 1.2 X 10^3 (1.0-4.0); LYMPHOCYTES % (AUTO) 24 % (12-44); MEAN CORPUSCULAR HEMOGLOBIN 30 PG (25-34); MEAN CORPUSCULAR HGB CONC 35 G/DL (32-36); MEAN CORPUSCULAR VOLUME 85 FL (80-99); MONOCYTES # (AUTO) 0.6 X 10^3 (0.0-1.0); MONOCYTES % (AUTO) 12 % (0-12); NEUTROPHILS % (AUTO) 60 % (42-75); PLATELET COUNT 169 10^3/uL (130-400); RED BLOOD COUNT 4.91 10^6/uL (4.35-5.85)
[2017-05-26 05:48] LABS: INR 1.7 (0.8-1.4); PROTHROMBIN TIME PATIENT 20.1 SEC (12.2-14.7)
[2017-05-26 05:50] LABS: ALANINE AMINOTRANSFERASE 9 U/L (0-55); ALBUMIN 4.2 GM/DL (3.2-4.5); ALKALINE PHOSPHATASE 69 U/L (40-136); BUN/CREATININE RATIO 17; CALCIUM 9.3 MG/DL (8.5-10.1); CARBON DIOXIDE 26 MMOL/L (21-32); CHLORIDE 103 MMOL/L (98-107); CHOLESTEROL 159 MG/DL (< 200); CREATININE SERUM 0.83 MG/DL (0.60-1.30); GFR ESTIMATED > 60; GLUCOSE 100 MG/DL (70-105); HDL CHOLESTEROL 43 MG/DL (40-60); POTASSIUM 3.7 MMOL/L (3.6-5.0); SODIUM 139 MMOL/L (135-145); TOTAL PROTEIN 6.9 GM/DL (6.4-8.2); TRIGLYCERIDES 82 MG/DL (<150); VLDL CHOLESTEROL 16 MG/DL (5-40)
[2017-05-26] MEDS: CATHETER FLUSH 10 ML SYR IV SCH (06:30)
--- NOTE | 2017-05-26 06:40 | Pulmonary Consultation ---
History of Present Illness History of Present Illness Date of Consultation 05/26/17 06:35 Time Seen by Provider: 06:35 Date of Admission Reason for Visit: hemoptysis History of Present Illness 76yo with hx of Afib and is on chronic anticoagulation presented to ED secondary to coughing and hemoptysis. Ct scan was done and showed inflammation. No prior episodes of hemoptysis. He quit smoking 37yrs ago. Hemoptysis has improved since admission. I am consulted for pulmonary management. Allergies and Home Medications Allergies Coded Allergies: No Known Drug Allergies (Unverified , 05/25/17) Home Medications Amlodipine Besylate 10 Mg Tablet, 10 MG PO DAILY, (Reported) Aspirin 81 Mg Tablet.dr, 81 MG PO DAILY, (Reported) Clonidine HCl 0.1 Mg Tablet, 0.05 MG PO BID, (Reported) Hydralazine HCl 25 Mg Tablet, 12.5 MG PO BID, (Reported) Losartan Potassium 100 Mg Tablet, 100 MG PO DAILY, (Reported) Magnesium Oxide 400 Mg Tablet, 400 MG PO DAILY, (Reported) Metronidazole 45 Gm Gel..gram., TP DAILY PRN for RASH, (Reported) APPLIES TO FACE Multivitamin 1 Each Tablet, 1 TAB PO DAILY, (Reported) Propafenone HCl 150 Mg Tablet, 150 MG PO 0800,1500,2200, (Reported) Tamsulosin HCl 0.4 Mg Cap.er.24h, 0.4 MG PO HS, (Reported) Past Hrxkhce-Ixijfv-Xbullg Hx Past Med/Social Hx: Reviewed Nursing Past Med/Soc Hx, Reviewed and Corrections made Patient Social History Alcohol Use: Denies Use Recreational Drug Use: No Smoking Status: Former Smoker Type Used: Cigarettes Former Smoker, Quit: July 07, 1979 2nd Hand Smoke Exposure: No Recent Foreign Travel: No Contact w/Someone Who Travel: No Recent Infectious Disease Expo: No Recent Hopitalizations: No Immunizations Up To Date Date of Pneumonia Vaccine: Mar 18, 2012 Seasonal Allergies Seasonal Allergies: No Past Medical History Surgeries: Yes (hernia, cardiac ablation) Abdominal, Cardiac, Orthopedic Respiratory: No Cardiac: Yes (cardiac ablation) Atrial Fibrillation, High Cholesterol, Hypertension Neurological: No Sexually Transmitted Disease: No Genitourinary: Yes Prostate Problems Gastrointestinal: Yes Abdominal Hernia, Ulcer Musculoskeletal: No Endocrine: No HEENT: No Cancer: No Psychosocial: No Integumentary: No Blood Disorders: No Family Medical History Cardiovascular disease 19 FATHER 19 MOTHER Dementia 19 MOTHER FH: gastric ulcer 19 FATHER Thyroid disease DAUGHTER Heart Disease Review of Systems Time Seen by Provider: 07:44 Constitutional: No: Fever, Chills, Sweats, Weakness, Malaise, Other Eyes: No: Pain, Vision change, Conjunctivae inflammation, Eyelid inflammation, Other, Redness ENT: No: Ear pain, Ear discharge, Nose pain, Nose discharge, Nose congestion, Mouth pain, Mouth swelling, Throat pain, Throat swelling, Other Respiratory: Cough, Dry, Hemoptysis, No: Shortness of breath, SOB with excertion, Wheezing, Pleuritic Pain, Sputum, Wheezing, Other Cardiovascular: No: Chest Pain, Palpitations, Orthopnea, Paroxysmal Noc. Dyspnea, Edema, Lt Headedness, Other Gastrointestinal: No: Nausea, Vomiting, Abdominal Pain, Diarrhea, Constipation , Melena, Hematochezia, Other Exam Exam Vital Signs Date Time Temp Pulse Resp B/P (MAP) Pulse Ox O2 Delivery O2 Flow Rate FiO2 05/26/17 04:10 98.0 73 17 143/87 (105) 96 Room Air 05/26/17 01:00 61 05/25/17 23:07 97.5 72 16 124/69 (87) 99 Room Air 05/25/17 20:30 Room Air 05/25/17 20:14 96 Room Air 05/25/17 20:00 97.4 73 16 137/84 (101) 98 Room Air 05/25/17 19:00 71 05/25/17 15:43 97.8 65 18 162/91 (114) 98 Room Air 05/25/17 13:00 80 05/25/17 11:13 97.9 62 18 156/72 (100) 97 Room Air 05/25/17 11:02 56 96 21 05/25/17 09:20 66 05/25/17 08:50 98.2 56 18 154/67 (96) 96 Room Air 05/25/17 07:00 96.9 67 16 155/83 (107) 97 Room Air 05/25/17 07:00 Room Air 05/25/17 06:52 97.0 65 16 161/99 (129) 99 Room Air I & O 05/26/17 07:00 Intake Total 1050 ml Output Total 2 ml Balance 1048 ml General Appearance: No Apparent Distress, WD/WN HEENT: PERRL/EOMI, Moist Mucous Membranes Neck: Non Tender, Supple Respiratory: No Accessory Muscle Use, No Respiratory Distress, Crackles (right base) Cardiovascular: Regular Rate, Rhythm, No Murmur Capillary Refill: Less Than 3 Seconds Extremity: Normal Capillary Refill, No Calf Tenderness, No Pedal Edema Neurologic/Psychiatric: Alert, Oriented x3, No Motor/Sensory Deficits, Normal Mood/Affect Skin: Normal Color, Warm/Dry Lymphatic: No Adenopathy Results Lab Laboratory Tests 05/25/17 04:00 05/26/17 05:20 Assessment/Plan Assessment/Plan Hemoptysis - resolved -Doubt vasculitis -No anemia and Hb is stable -Warfarin is on hold - INR on admission was 2.1 -No obvious reason for hemoptysis - No supratheraputic INR, PNA, coughing, trauma, etc. -I recommend proceeding with bronchoscopy. Will schedule for Wed. I discussed with patient risk vs benefits of procedure. Pt can go home and come back as out patient for bronch. Pulmonary infiltration RML - No leukocytosis, no fever. PNA vs pulmonary hemorrhage -Monitor -Pt is on Rocephin and Azithromycin Hx of tobacco use -No wt loss, no hx of previous cancer Afib hx - currently in sinus -Home Warfarin is on hold -Cardiology consulted I discussed with Dr. Marina and he agrees with pt having diagnostic bronchoscopy. 255 TK MALDONADO DO May 26, 2017 06:40
[2017-05-26] MEDS: RT-ALBUTEROL/IPRATROPIUM 3 ML (DUONEB) VIAL INH SCH (07:36)
--- NOTE | 2017-05-26 08:05 | Diagnostic Imaging Report ---
INDICATION: Hemoptysis. Infiltrate. COMPARISON: 05/25/2017 FINDINGS: Frontal and lateral views of the chest demonstrate normal heart size and pulmonary vascularity. The lungs are clear. There are no signs of infiltrate, pleural effusions or pneumothoraces. The visualized osseous structures show no acute abnormalities. IMPRESSION: 1. No acute process. No signs of infiltrates, effusions or pneumothoraces. Dictated by: Dictated on workstation # [id number]
[2017-05-26] MEDS: hydrALAZINE (APRESOLINE) 25 MG TAB PO SCH (08:14)
[2017-05-26] MEDS: LOSARTAN 50 MG (COZAAR) TAB PO SCH (08:14)
[2017-05-26] MEDS: amLODIPine 10 MG (NORVASC) TAB PO SCH (08:14)
[2017-05-26] MEDS: cloNIDine 0.1 MG (CATAPRES) TAB PO SCH (08:14)
--- NOTE | 2017-05-26 08:46 | Cardiology Progress Note ---
Subjective Date Seen by Provider: May 26, 2017 Time Seen by Provider: 08:44 Subjective/Events-last exam Patient is sitting up in bed, no new complaints. Denies any CP or dyspnea. Asking to go home. Review of Systems General: No Night Sweats, No Fatigue, No Malaise HEENT: No Visual Changes, No Dysphasia, No Sore Throat Pulmonary: No Dyspnea, No Cough Cardiovascular: No: Chest Pain, Edema Gastrointestinal: No: Nausea, Vomiting, Diarrhea, Constipation Genitourinary: No Dysuria Musculoskeletal: No: neck pain, back pain Neurological: No: Weakness, Numbness, Change in speech, Confusion Objective-Cardiology Exam Last Set of Vital Signs Vital Signs 05/25/17 05/26/17 05/26/17 05/26/17 11:02 04:10 07:00 07:36 Temp 98.0 Pulse 61 Resp 17 B/P (MAP) 143/87 (105) Pulse Ox 96 O2 Delivery Room Air FiO2 21 Capillary Refill : Less Than 3 Seconds I&O Intake and Output 05/26/17 00:00 Intake Total 1050 ml Output Total 2 ml Balance 1048 ml Intake Oral 800 ml IV Total 250 ml Output Urine Total 2 ml # Voids 3 # Bowel Movements 1 Daily Weight Change No General: Alert, Oriented X3, Cooperative HEENT: Atraumatic, PERRLA Neck: Supple, No JVD, No Thyromegaly Lungs: Clear to Auscultation, Normal Air Movement Heart: Regular Rate, Normal S1, Normal S2, No Murmurs Abdomen: Normal Bowel Sounds, Soft, No Tenderness, No Hepatosplenomegaly, No Masses Extremities: No Clubbing, No Cyanosis, No Edema, Normal Pulses, No Tenderness/ Swelling Skin: No Rashes, No Breakdown, No Significant Lesion Neuro: Normal Gait, Normal Speech, Strength at 5/5 X4 Ext, Normal Tone, Sensation Intact Psych/Mental Status: Mental Status NL, Mood NL Results Lab Laboratory Tests 05/26/17 05:20 A/P-Cardiology Admission Diagnosis Hemoptysis Pneumonia Persistent atrial fibrillation Chest pain nonspecific etiology Assessment/Plan Hemoptysis, right pulmonary infiltrate, started on antibiotic and Coumadin is on hold. Continue to monitor, reporting improvement. Dr. Barbosa managing. Planning for diagnostic bronchoscopy as outpatient on Friday. Pneumonia, started on Rocephin and azithromycin. Managed by primary care physician Paroxysmal atrial fibrillation-status post atrial fibrillation/flutter ablation with Dr. Saleh in January 2016. he underwent pulmonary vein isolation in addition atrial flutter ablation but he had 4 morphologies of atrial flutter and Dr. Saleh was unable to ablate them all, he was treated with propafenone, currently he is off propafenone and he is feeling well. No palpitation was noted, continue to hold Coumadin Chronic Coumadin therapy, INR 2.1, discontinue Coumadin for now, continue to monitor telemetry. X Chest pain nonspecific etiology. Continue to monitor at this time. Cardiac catheterization was done in May 2012 showing mild coronary artery disease nonobstructive disease. Continue to monitor Hypertension, on multiple medication, restart medication monitor. BPH, on Flomax and feeling better Hyperlipidemia, continue to monitor lipids Pulmonary hypertension-PA pressure 45 mm mercury per 2-D echocardiogram March 2012,results of repeat 2D Echo pending. Mild bilateral carotid stenosis, ultrasound was done September 2016, continue to monitor Clinical Quality Measures DVT/VTE Risk/Contraindication: Risk Factor Score Per Nursin RFS Level Per Nursing on Admit: 3=High YEVGENIY MCCORD May 26, 2017 08:46
[2017-05-26 09:00] VITALS: BP 143/67
[2017-05-26] MEDS ORDERED: TAMSULOSIN 0.4 MG (FLOMAX) CAP PO SCH (09:00)
[2017-05-26] MEDS ORDERED: AZITHROMYCIN 250 MG TAB (ZITHROMAX) PO SCH (09:00)
[2017-05-26] MEDS ORDERED: cloNIDine 0.1 MG (CATAPRES) TAB PO SCH (09:00)
[2017-05-26] MEDS ORDERED: cefTRIAXone 1 GM/NS 100 ML IVPB IV SCH ×2 (09:00)
[2017-05-26] MEDS ORDERED: amLODIPine 10 MG (NORVASC) TAB PO SCH (09:00)
--- NOTE | 2017-05-26 09:48 | Cardiology Progress Note ---
Subjective Date Seen by Provider: May 26, 2017 Time Seen by Provider: 09:45 Subjective/Events-last exam patient is sitting at bedside, feeling well. Denied any active chest pain or shortness of breath. Denied any palpitation. Review of Systems General: No Chills, No Night Sweats, No Fatigue, No Malaise, No Appetite, No Other HEENT: No Head Aches, No Visual Changes, No Eye Pain, No Ear Pain, No Dysphasia , No Sinus Congestion, No Post Nasal Drip, No Sore Throat, No Other Pulmonary: No Dyspnea, No Cough, No Pleuritic Chest Pain, No Other Cardiovascular: No: Chest Pain, Palpitations, Orthopnea, Paroxysmal Noc. Dyspnea, Edema, Lt Headedness, Other Objective-Cardiology Exam Last Set of Vital Signs Vital Signs 05/25/17 05/26/17 11:02 09:00 Temp 98.1 Pulse 66 Resp 20 B/P (MAP) 143/67 (92) Pulse Ox 99 O2 Delivery Room Air FiO2 21 Capillary Refill : Less Than 3 Seconds I&O Intake and Output 05/26/17 00:00 Intake Total 1050 ml Output Total 2 ml Balance 1048 ml Intake Oral 800 ml IV Total 250 ml Output Urine Total 2 ml # Voids 3 # Bowel Movements 1 Daily Weight Change No General: Alert, Oriented X3, Cooperative HEENT: Atraumatic, PERRLA Neck: Supple, No JVD, No Thyromegaly Lungs: Clear to Auscultation, Normal Air Movement Heart: Regular Rate, Normal S1, Normal S2, No Murmurs Abdomen: Normal Bowel Sounds, Soft, No Tenderness, No Hepatosplenomegaly, No Masses Extremities: No Clubbing, No Cyanosis, No Edema, Normal Pulses, No Tenderness/ Swelling Skin: No Rashes, No Breakdown, No Significant Lesion Neuro: Normal Gait, Normal Speech, Strength at 5/5 X4 Ext, Normal Tone, Sensation Intact Psych/Mental Status: Mental Status NL, Mood NL Results Lab Laboratory Tests 05/26/17 05:20 A/P-Cardiology Admission Diagnosis Hemoptysis Pneumonia Persistent atrial fibrillation Chest pain nonspecific etiology Assessment/Plan Hemoptysis, right pulmonary infiltrate, started on antibiotic and Coumadin is on hold. Continue to monitor, reporting improvement. Dr. Barbosa managing. Planning for diagnostic bronchoscopy as outpatient on Friday. Pneumonia, started on Rocephin and azithromycin. Managed by primary care physician Paroxysmal atrial fibrillation-status post atrial fibrillation/flutter ablation with Dr. Saleh in January 2016. he underwent pulmonary vein isolation in addition atrial flutter ablation but he had 4 morphologies of atrial flutter and Dr. Saleh was unable to ablate them all, he was treated with propafenone, we had a long discussion about his management plan, he is concerned about having recurrent atrial fibrillation, cannot take anticoagulation at this time, I will proceed wit reveal implant and restart propafenone and monitor, My keno terminal operator plan is to stop antiarrhythmic and anticoagulation medication. Chronic Coumadin therapy, has been off Coumadin since admission. Continue without any oral anticoagulation. Chest pain nonspecific etiology. Continue to monitor at this time. Cardiac catheterization was done in May 2012 showing mild coronary artery disease nonobstructive disease. Continue to monitor Hypertension, on multiple medication, restart medication monitor. BPH, on Flomax and feeling better Hyperlipidemia, continue to monitor lipids Pulmonary hypertension-PA pressure 45 mm mercury per 2-D echocardiogram March 2012,results of repeat 2D Echo pending. Mild bilateral carotid stenosis, ultrasound was done September 2016, continue to monitor Clinical Quality Measures DVT/VTE Risk/Contraindication: Risk Factor Score Per Nursin RFS Level Per Nursing on Admit: 3=High FERMIN MEZA MD May 26, 2017 09:48
[2017-05-26] MEDS ORDERED: LIDOCAINE 1% INJ 50 ML (XYLOCAINE) VIAL ONE (10:17)
--- NOTE | 2017-05-26 11:26 | Progress Note-Hospitalist ---
Progress Note HPI/CC on Admission Pt is a 76yoCM with a PMH of HTN and a-fib on chronic anticoagulation who presented to the ER with CC of hemoptysis. He states he was at a concert on 05/23 evening and noticed he developed a cough. It continued to worsen and then started to cough up "hunks of blood" on the evening of 05/24. It continued throughout the night and he was coughing up cups at a time. He ultimately decided to seek evaluation in the ER for this. A CT chest was done which revealed right sided infiltrate with infalmmatory changes. He denies any history of hemoptysis. He is a former smoker but quit 37 years ago (previously smoked 3ppd). He denies any fevers or sick contacts. He was admitted for antibiotics and further evaluation of hemoptysis. This morning he states he is feeling better and his hemoptysis has decreased significantly. Of note he was told on 05/19 that his INR was low at 1.8 so he had been taking an extra 4mg with his daily 8mg dose to help rise it. Progress Notes/Assess & Plan Date Seen 05/26/17 Time Seen by Provider: 11:20 Assessment & Plan The patient is a 76-year-old white male well-known to me and for many years. He presented with some upper respiratory symptoms and began to have leon hemoptysis. He takes Coumadin for chronic atrial fibrillation. It is noted that he had been told in early May that his INR needed to be bumped a bed and had been taking extra Coumadin to that end. His INR at presentation was therapeutic. His Coumadin was held with a drop in the INR from 2.1-1.7. It is noted that he is a former smoker but stopped 30+ years ago. He states that this morning he has had virtually no blood with coughing. He has been seen by Dr. Barbosa of the pulmonary service. He believes the patient is appropriate for discharge and to return on Friday for outpatient bronchoscopy. This is the course the patient would prefer as well. Approximately 15 minutes was spent discussing the procedure. The rationale would be that anticoagulant of and by themselves do not cause bleeding but rather make other processes more likely to bleed. Physical exam: The patient is up and about and alert. He asks and answers questions appropriately. Lungs are clear to auscultation. CV is irregular and consistent with atrial fibrillation. Extremities show no pedal edema. Impression: Hemoptysis. 2.atrial fibrillation. 3.hypertension. Copy Copies To 1: LACIE AGUILAR MD, RODNEY K MD May 26, 2017 11:26
--- NOTE | 2017-05-26 11:31 | Implantation of Loop Monitor ---
Implant of Loop Monitior IMPLANTATION OF LOOP MONITOR REPORT DATE OF PROCEDURE: 05/26/17 PREOP DIAGNOSIS: Paroxysmal atrial fibrillation POSTOP DIAGNOSIS: Paroxysmal atrial fibrillation PROCEDURE DETAILS: The patient is a 76 male with history of paroxysmal atrial fibrillation requiring long-term surveillance. Therefore implantable loop recorder was discussed and agreed with the patient. Informed consent was taken. All risks and complications were discussed at length. The patient was draped and prepped in the usual sterile fashion. Local anesthesia was lidocaine, which was given in the substernal area close to the 4th intercostal space. Loop monitor [employer] with serial number [id number] was implanted according to the protocol. Steri-Strips were placed at the end of the procedure. There were no complications and the patient tolerated the procedure well. The device was interrogated with a voltage of. ANESTHESIA: Local anesthesia with lidocaine. COMPLICATIONS: None CONTRAST/FLUOROSCOPY: None CONCLUSION: Successful reveal device implantation with no complication FINAL DIAGNOSIS: Paroxysmal atrial fibrillation Hemoptysis Hypertension FERMIN MEZA MD May 26, 2017 11:31 am
--- NOTE | 2017-05-26 11:35 | Discharge Instructions ---
Discharge Instructions Patient Instructions Patient Instructions: Resume previous medications as per the discharge sequence. Dr. Barbosa is to enter the final instructions for the planned procedure on Friday. Return to The Hospital For: Change in condition Activity & Diet Discharge Diet: Coumadin Patient Diet Activity as Tolerated: Yes DANIELA JEFFERSON MD May 26, 2017 11:35
[2017-05-26] MEDS ORDERED: PROPAFENONE 150 MG (RYTHMOL) TABLET PO SCH (15:00)
== END 2017-05-26 12:00 | disposition home or self-care (01) | DRG 982 ==
LOC: EDUNIT# 02:35 → ER 02:37 → 4TH 06:20
PROVIDERS: ADMIT Family Medicine; ATTEND Internal Medicine
PROC: 0JH632Z Insertion of Monitoring Device into Chest Subcutaneous Tissue and Fascia, Percutaneous Approach (ICD-10-PCS; principal; 2017-05-26)
DX: J18.9 Pneumonia, unspecified organism (principal); R04.2 Hemoptysis; I48.0 Paroxysmal atrial fibrillation; I10 Essential (primary) hypertension; R07.9 Chest pain, unspecified; I25.10 Atherosclerotic heart disease of native coronary artery without angina pectoris; I27.20 Pulmonary hypertension, unspecified; E78.00 Pure hypercholesterolemia, unspecified; I65.23 Occlusion and stenosis of bilateral carotid arteries; N40.0 Benign prostatic hyperplasia without lower urinary tract symptoms; Z87.891 Personal history of nicotine dependence; Z79.01 Long term (current) use of anticoagulants; Z87.11 Personal history of peptic ulcer disease
CPT/HCPCS: 33282; 36415; 71046; 71275; 74174; 80053; 80061; 85025; 85027; 85610; 85730; 87070; 87205; 93005; 93041; 93306; 94640; 94760

== ENCOUNTER 2017-05-29 05:32 | Outpatient (CLI) | payer MEDICARE ==
[~2017-05-29] VITALS: Ht 177.8 cm; Wt 82.1 kg
[~2017-05-29 05:32] MED LIST changes: +AMLO10TA2 PO; +ASPI-983 PO; +CLON0.1T PO; +HYDR-3923 PO; +LOSA100T28 PO; +MAGN400T6 PO; +METR45GE9 TP; +MULT1TAB69 PO; +TAMS0.4C2 PO; +WARF4TAB70
== END 2017-05-29 09:58 ==
LOC: PREOP 05:32
PROVIDERS: ATTEND Internal Medicine Critical Care Medicine
DX: Z01.818 Encounter for other preprocedural examination (principal)

== ENCOUNTER 2017-06-02 06:46 | Day surgery (SDC) | payer MEDICARE ==
[~2017-06-02] VITALS: Ht 177.8 cm; Wt 82.1 kg
[2017-06-02] MEDS ORDERED: NS IV 500 ML 500 ML IV PRN (06:53)
[2017-06-02] MEDS ORDERED: NS IV 500 ML 500 ML ONE (07:02)
[2017-06-02 07:10] VITALS: BP 151/105
--- NOTE | 2017-06-02 07:27 | Progress Note-Pre Operative ---
Pre-Operative Progress Note H&P Reviewed The H&P was reviewed, patient examined and no changes noted. Time Seen by Provider: 07:26 Date H&P Reviewed: Jun 02, 2017 Time H&P Reviewed: 07:27 Pre-Operative Diagnosis: hemoptysis TK MALDONADO DO Jun 02, 2017 07:27
--- NOTE | 2017-06-02 07:27 | Pre-Op Note & Conscious Sedat ---
Pre-Operative Progress Note H&P Reviewed The H&P was reviewed, patient examined and no changes noted. Date H&P Reviewed: Jun 02, 2017 Time H&P Reviewed: 07:27 Conscious Sedation Pre-Proced Time Reviewed: ASA Class: 3 Airway Mallampati Classification: ([place] appropriate class) I. II. III, IV Lungs Heart ASA score ASA 1: a normal healthy patient ASA 2: a patient with a mild systemic disease (mid diabetes, controlled hypertension, obesity ASA 3: a patient with a severe systemic disease that limits activity (angina , COPD, prior Myocardial infarction) ASA 4: a patient with an incapacitating disease that is a constant threat to life (CHF, renal failure) ASA 5: a moribund patient not expected to survive 24 hrs. (ruptured aneurysm) ASA 6: a declared brain patient whose organs are being harvested. For emergent operations, add the letter E after the classification Grade 3 Sedation Plan: Analgesia, Amnesia, Plan communicated to team members, Discussed options with patient/fam, Discussed risks with patient/fam Note The patient is an appropriate candidate to undergo the planned procedure, sedation, and anesthesia. The patient immediately re-assessed prior to indication. TK MALDONADO DO Jun 02, 2017 07:27
[2017-06-02] MEDS ORDERED: MIDAZOLAM 2 MG/2 ML (VERSED) VIAL ONE ×3 (07:28→07:29)
[2017-06-02] MEDS ORDERED: fentaNYL INJECTION 100 MCG/2 ML AMP ONE ×2 (07:28)
[2017-06-02] MEDS: fentaNYL INJECTION 100 MCG/2 ML AMP IVP PRN ×3 (07:35→07:52)
[2017-06-02] MEDS: MIDAZOLAM 2 MG/2 ML (VERSED) VIAL IVP PRN ×3 (07:36→07:53)
--- NOTE | 2017-06-02 08:56 | Pulmonary Procedures ---
Pulmonary Procedures Date of Procedure Date of Service: Jun 02, 2017 Bronch Bronchoscopy with bronchoalveolar lavage (BAL), forcep bx, transbronchial washes and, brushes. Preop DX: hemoptysis Postop DX: Right superior segment probable endobronchial mass vs less likely coagulated blood without mass. Complications: none After informed consent obtained and formal time out pt was sedated using Fentanyl and Versed. Bronchoscope was advanced through the right nare and vocal cords. 1% lidocaine was used to anesthetize vocal cords, epiglottis, justina, and left/right main stem bronchus. An anatomical tour was undertaken down to the segmental bronchi bilaterally. From the superior segment of RLL an endobronchial mass was found. At first it appeared to be just old coagulated blood however this did not clear with lavaging. From this area bronchoalveolar lavage (BAL), washings, forcep bx, and, brushes were obtained. Pt tolerated procedure well. No complications noted. Stat CXR is pending. TK MALDONADO DO Jun 02, 2017 08:56
[2017-06-02 09:00] VITALS: BP 128/82
--- NOTE | 2017-06-02 09:12 | Diagnostic Imaging Report ---
Clinical indication: Post bronchoscopy. Exam: Portable chest x-ray supine view. Comparison: Chest x-ray dated 05/26/2017. Findings: There is interval development of a small to moderate amount of groundglass opacification/partial consolidation involving the right midlung field. There is no pneumothorax. There is no pleural effusion. The left lung is clear. Interval placement of a loop recorder overlying the left chest region. Pulmonary vasculature is within normal limits. Cardiac silhouette is upper limits of normal for portable projection. There are degenerative spurs involving the thoracic spine and cervical spine. Impression: 1: Interval development of a small to moderate amount of groundglass opacification/consolidation involving the right midlung field. If this is the area of biopsy, hemorrhage may be considered. Aspiration or localized pulmonary edema may be considered. Clinical correlation would better evaluate for development of pneumonia. 2: Otherwise, the remainder of this chest exam is unremarkable. Dictated by: Dictated on workstation # [id number]
[2017-06-02 09:35] VITALS: BP 131/91
[2017-06-02 09:40] VITALS: BP 131/91
--- NOTE | 2017-06-02 09:56 | Diagnostic Imaging Report ---
Clinical indication: Dr. Barbosa performed a bronchoscopy with fluoroscopy. Exam: Single limited intraprocedural fluoroscopic x-ray image of the chest. Comparison: Chest x-ray dated 05/26/2017. Findings and impression: Limited intraprocedural fluoroscopic x-ray image of the chest is seen with bronchoscopy scope seen. Please see surgeon's report for more detail. Fluoroscopy was provided for surgeons and a total of 52.6 seconds and 631.90 mrad was provided. Dictated by: Dictated on workstation # [id number]
[2017-06-02] MEDS ORDERED: LIDOCAINE JELLY 2% (XYLOCAINE) 30 ML TUBE TOP ONE (11:01)
[2017-06-02] MEDS ORDERED: LIDOCAINE 4% INJ (XYLOCAINE) 5ML AMP INJ ONE (11:01)
[2017-06-02] MEDS ORDERED: LIDOCAINE PF 1% 2 ML AMP IJ ONE (11:01)
== END 2017-06-02 09:45 | disposition home or self-care (01) ==
LOC: SDC 06:46
PROVIDERS: ATTEND Internal Medicine Critical Care Medicine
DX: J98.4 Other disorders of lung (principal); R04.2 Hemoptysis; Z87.891 Personal history of nicotine dependence; E78.00 Pure hypercholesterolemia, unspecified; I10 Essential (primary) hypertension; I48.91 Unspecified atrial fibrillation
CPT/HCPCS: 71045; 87070; 87101; 87116; 87205; 88112; 88305; 88312; 94640

== ENCOUNTER → 2017-06-03 | Outpatient (CLI) | payer MEDICARE ==
--- NOTE | 2017-06-03 14:26 | Diagnostic Imaging Report ---
INDICATION: Endobronchial mass and hemoptysis. TECHNIQUE: Serum blood glucose level at the time of injection is 126 mg/dL. Patient was administered 12.6 mCi of F-18 FDG intravenously in the left antecubital region and PET imaging was performed from the top of the skull through the mid thighs. In addition, noncontrast CT was performed for attenuation correction and anatomic correlation. COMPARISON: No prior PET/CT is available for comparison. Comparison is made with a conventional CT chest, abdomen, and pelvis performed on 05/25/2017. There is symmetric activity throughout the brain. No abnormal hypermetabolism within the soft tissues of the neck is identified. No abnormal hypermetabolism within the meera or mediastinum is seen. Pulmonary parenchyma is unremarkable. Calcified lymph nodes are again noted within the mediastinum, consistent with prior granulomatous exposure. Previously noted patchy groundglass infiltrates in the right lung appear slightly improved. Imaging through the abdomen does show physiologic activity within the liver and spleen as well as the genitourinary and GI tracts. There is a vertically oriented and linear hypermetabolism identified in the pelvis, located just lateral to the bladder dome and anterior. This appears to be fairly symmetric and does not appear to be mass like. These areas are adjacent to multiple surgical clips but exact etiology is indeterminate. No other regions of hypermetabolism are seen. IMPRESSION: Essentially unremarkable PET/CT study without evidence of hypermetabolism within the chest, abdomen, or pelvis with the exception of symmetric regions of vertically oriented hypermetabolism in the deep pelvis anteriorly, as described. This may be postsurgical, as this is adjacent to multiple surgical clips. Clinical correlation to prior surgical history is recommended. The remainder of the study is unremarkable. Dictated by: Dictated on workstation # [id number]
== END ==
LOC: RAD 10:42
PROVIDERS: ATTEND Internal Medicine Critical Care Medicine
DX: R91.8 Other nonspecific abnormal finding of lung field (principal); Z98.890 Other specified postprocedural states

== ENCOUNTER → 2017-08-18 | Outpatient (CLI) | payer MEDICARE ==
--- NOTE | 2017-08-18 15:45 | Diagnostic Imaging Report ---
PROCEDURE: CT chest without contrast. TECHNIQUE: Multiple contiguous axial images were obtained through the chest without the use of intravenous contrast. INDICATION: Interstitial lung disease. COMPARISON: Exam is interpreted in correlation with a CT fusion PET performed 06/03/2017 as well as correlated with formal chest CT 05/25/2017. FINDINGS: The airspace nodular infiltrate in the infrahilar right lower lobe present on previous exams has resolved. The lungs are clear to followup, and there is no evidence for a lung mass. There are some calcified benign granulomatous residua in the subcarinal mediastinum. No noncalcified or suspicious lymphadenopathy. The thoracic aorta is nonaneurysmal. There is no pleural or pericardial effusion. The visualized upper abdomen reveals a low-density hepatic nodule, stable, presumed cystic, with the partially visualized unopacified liver, adrenals, and spleen are unremarkable. IMPRESSION: Clear lungs to followup showing resolution of previous right lower lobe infiltrate. No mass, adenopathy, or suspicious finding. Dictated by: Dictated on workstation # [id number]
== END ==
LOC: RAD 13:05
PROVIDERS: ATTEND Internal Medicine
DX: J84.9 Interstitial pulmonary disease, unspecified (principal)
CPT/HCPCS: 71250

== ENCOUNTER → 2017-10-27 | Outpatient (CLI) | payer MEDICARE ==
[~2017-10-27] MED LIST changes: -AMLO10TA2 PO; +AMLO10TA6 PO; +APIX5TAB PO; +ATOR10TA PO; +CLOP75TA28 PO; -LOSA100T28 PO; +LOSA100T8 PO; +MAGN400T39 PO; +PROP225T2 PO; +REGADENOSON 0.4 MG/5 ML SYR (LEXISCAN) IV ONE
[2017-10-27] MEDS: CATHETER FLUSH 10 ML SYR IV PRN ×2 (08:26→09:50)
[2017-10-27 09:47] VITALS: BP 172/109
--- NOTE | 2017-10-27 13:17 | STRESS TEST ---
DATE OF SERVICE: 10/27/2017 LEXISCAN MYOVIEW STRESS TEST REPORT REFERRING PHYSICIAN: Dr. Colvin. Baseline heart rate is 61, baseline blood pressure was 68/96. Baseline EKG sinus rhythm with no ischemic changes. In summary, the patient was injected with 10.98 mCi of technetium-99 Myoview and the resting images were obtained. Then, the patient received 0.4 mg of Lexiscan followed by 31.0 mCi of technetium-99 Myoview. Throughout the test, there were no EKG changes. The resting and stress images were reviewed and compared in the short axis, horizontal long axis, and vertical long axis views. Review of the images showed diaphragmatic attenuation with reversible ischemia involving the anterior wall, anteroapical segment. SSS is 2, SDS 2, TID value 1.02. On the gated images, the left ventricle appeared to be in normal size with normal contractility. Calculated ejection fraction 57%. CONCLUSION: 1. The patient tolerated Lexiscan well. 2. Mild ischemia involving the anterior wall and anteroapical segment. 3. Normal left ventricular size with normal contractility. Calculated ejection fraction 57%. Job ID: [id number] DocumentID: [id number] Dictated Date: 10/27/2017 11:55:44 Freight Engineer Date: 10/27/2017 13:16:43 Dictated By: FERMIN MEZA MD
== END ==
LOC: CARD 07:58
PROVIDERS: ATTEND Physician Assistant
DX: R07.9 Chest pain, unspecified (principal); E78.2 Mixed hyperlipidemia; I10 Essential (primary) hypertension; I48.0 Paroxysmal atrial fibrillation
CPT/HCPCS: 78452; 93017

== ENCOUNTER 2017-10-29 10:46 | Day surgery (SDC) | payer MEDICARE ==
[~2017-10-29] VITALS: Ht 177.8 cm; Wt 75.1 kg
[~2017-10-29 10:46] MED LIST changes: -APIX5TAB PO; -ATOR10TA PO; -CLOP75TA28 PO; +LIDOCAINE 1% INJ 20 ML 20 ML VIAL ONE; -MAGN400T39 PO; -PROP225T2 PO; -REGADENOSON 0.4 MG/5 ML SYR (LEXISCAN) IV ONE
[2017-10-29 11:09] VITALS: BP 149/88
[2017-10-29] MEDS: NS IV 1000 ML 1,000 ML IV SCH ×3 (11:09→21:29)
[2017-10-29] MEDS ORDERED: AMLO10TA6 PO (11:13)
[2017-10-29] MEDS ORDERED: MAGN400T39 PO (11:14)
[2017-10-29 11:15] LABS: HEMOGLOBIN 14.7 G/DL (13.3-17.7); MEAN PLATELET VOLUME 9.9 FL (7.4-10.4); RED BLOOD COUNT 5.02 10^6/uL (4.35-5.85); RED CELL DISTRIBUTION WIDTH 13.6 % (10.0-14.5); WHITE BLOOD COUNT 6.3 10^3/uL (4.3-11.0)
[2017-10-29] MEDS ORDERED: APIX5TAB PO (11:15)
--- NOTE | 2017-10-29 11:30 | Diagnostic Imaging Report ---
INDICATION: Abnormal stress test. Loop recorder overlies the left chest. The lungs are clear on followup. The heart size upper limits but no vascular congestion. No edema, pneumonia, effusion or pneumothorax. IMPRESSION: No acute appearing abnormality Dictated by: Dictated on workstation # [id number]
[2017-10-29 11:35] LABS: INR 1.1 (0.8-1.4); PROTHROMBIN TIME PATIENT 14.4 SEC (12.2-14.7)
[2017-10-29 11:37] LABS: ALANINE AMINOTRANSFERASE 7 U/L (0-55); ALBUMIN 4.5 GM/DL (3.2-4.5); ALKALINE PHOSPHATASE 74 U/L (40-136); BUN/CREATININE RATIO 18; CALCIUM 9.4 MG/DL (8.5-10.1); CARBON DIOXIDE 27 MMOL/L (21-32); CHLORIDE 105 MMOL/L (98-107); CHOLESTEROL 164 MG/DL (< 200); CREATININE SERUM 0.96 MG/DL (0.60-1.30); GFR ESTIMATED > 60; GLUCOSE 92 MG/DL (70-105); HDL CHOLESTEROL 41 MG/DL (40-60); POTASSIUM 3.5 MMOL/L (3.6-5.0); SODIUM 141 MMOL/L (135-145); TOTAL PROTEIN 7.4 GM/DL (6.4-8.2); TRIGLYCERIDES 112 MG/DL (<150); VLDL CHOLESTEROL 22 MG/DL (5-40)
[2017-10-29] MEDS ORDERED: HEParin 1000 UNIT/ML (10ML VIAL) FOR BOLUS ONE (13:33)
[2017-10-29] MEDS ORDERED: fentaNYL INJECTION 100 MCG/2 ML AMP ONE (13:45)
[2017-10-29] MEDS ORDERED: MIDAZOLAM 5 MG/5 ML (VERSED) VIAL ONE (13:45)
--- NOTE | 2017-10-29 13:48 | Cardiac Procedure Note-CS/ASA ---
Pre-Procedure Note Pre-Op Procedure Note H&P Reviewed The H&P was reviewed, patient examined and no changes noted. Date H&P Reviewed: Oct 29, 2017 Time H&P Reviewed: 13:48 Conscious Sedation Pre-Proced Time Reviewed: 13:48 ASA Class: 3 Airway Mallampati Classification: ([place] appropriate class) I. II. III, IV Lungs Heart ASA score ASA 1: a normal healthy patient ASA 2: a patient with a mild systemic disease (mid diabetes, controlled hypertension, obesity x ASA 3: a patient with a severe systemic disease that limits activity (angina , COPD, prior Myocardial infarction) ASA 4: a patient with an incapacitating disease that is a constant threat to life (CHF, renal failure) ASA 5: a moribund patient not expected to survive 24 hrs. (ruptured aneurysm) ASA 6: a declared brain patient whose organs are being harvested. For emergent operations, add the letter E after the classification Grade 3 Sedation Plan: Analgesia, Amnesia, Plan communicated to team members, Discussed options with patient/fam, Discussed risks with patient/fam Note The patient is an appropriate candidate to undergo the planned procedure, sedation, and anesthesia. The patient immediately re-assessed prior to indication. FERMIN MEZA MD Oct 29, 2017 13:48
[2017-10-29] MEDS ORDERED: NITRO DRIP 25000 MCG/D5W 250 ML IV ONE (13:57)
[2017-10-29] MEDS ORDERED: EPTIFIBATIDE BOLUS 20 ML IV ONE (13:57)
[2017-10-29] MEDS ORDERED: CLOPIDOGREL 300 MG (PLAVIX) TABLET PO ONE (14:27)
[2017-10-29] MEDS ORDERED: ASPIRIN 325 MG (5 GR) TABLET ONE (14:27)
[2017-10-29] MEDS ORDERED: PATIENT MAY USE OWN MEDS, ALL PO SCH (14:30)
[2017-10-29] MEDS ORDERED: NON-FORMULARY MEDICATION 1 EA EA (Amlodipine Besylate 10 MG) PO SCH (14:30)
--- NOTE | 2017-10-29 14:36 | Cardiac Cath Report ---
Cardiac Cath Report Physician (s)/On Car Supervisor (s) Physician FERMIN MEZA MD Pre-Procedure Diagnosis Pre-Procedure Diagnosis: Coronary artery disease Post-Procedure Note Procedure Start Date: Oct 29, 2017 Name of Procedure: Left heart catheterization Stent to the LAD Findings/Procedure Note PROCEDURE NOTE: After explaining the procedure to the patient, all pros and cons were explained , all questions were answered. The patient signed the consent and then he was placed on the cardiac catheterization laboratory. Groin was prepped SL fashion local anesthesia was used. Sheath placed in the right femoral artery. Marianela right and left catheter were used to access the coronary system. Pigtail was used to access the left ventricular cavity. Left ventriculogram was not done, pressure was measured neck Patient was given a bolus of heparin and double bolus of Integrilin, VL guide was used to accident left carotid system and I advanced the BMW wire into the diagonal artery and a second wire into the LAD. Patient has severe mid LAD stenosis involving the first diagonal and the septal branches. I did balloon angioplasty using 2.515 mm balloon to the LAD then I did balloon angioplasty to the ostium of the diagonal artery. Angiogram showed recoiling of the diagonal lesion. I proceeded with stenting the LAD using Xience Savana 2.515 mm expanded to 2.6 mm with excellent results. The diagonal artery continued to have severe ostial stenosis. At the end of the procedure the sheath was removed. Closure device was used FINDINGS: Hemodynamics LV 130/12, end-diastolic pressure of 12 Aorta 137/79 mean of 101 ANATOMY: Left Main has no obstructive disease Left Anterior Descending has a complex severe stenosis at the midportion involving the ostium of first diagonal and a septal branch, complex balloon angioplasty to the ostium of the diagonal branch was recoiling with no improvement, stenting to the LAD using Xience Savana 2.515 mm expanded to 2.6 mm with excellent results. Left Circumflex is moderate in size with no obstructive disease Right Coronory Artery is moderate in size with no obstructive disease LV Gram was not done pressure was measured CONCLUSION: 1. Severe mid LAD stenosis complex lesion involving the ostium of the diagonal artery, balloon angioplasty to the ostial diagonal lesion and deployment of Xience Savana 2.515 mm drug-eluting stent expanded to 2.6 mm with excellent results 2. Mild to moderate disease in the right coronary artery and circumflex artery none obstructive disease DISCUSSION AND RECOMMENDATION: Continue with medical therapy, patient may not be able to tolerate class IC antiarrhythmic medication Anesthesia Type: Conscious Sedation Estimated blood loss (mL): 10 ml Contrast Amount: 140 ml Total Radiation Dose: 1007 mGy Post-Procedure Diagnosis Post-operative diagnosis: Coronary artery disease Chronic atrial fibrillation Hypertension Hyperlipidemia FERMIN MEZA MD Oct 29, 2017 14:36
[2017-10-29 15:00] VITALS: BP 141/95
[2017-10-29] MEDS ORDERED: amLODIPine 10 MG (NORVASC) TAB PO SCH (15:15)
[2017-10-29 16:00] VITALS: BP 138/86
[2017-10-29] MEDS: NITROGLYCERIN 0.4 MG SL TABS BTL 25'S SL PRN ×2 (16:17→16:27)
[2017-10-29] MEDS ORDERED: NITROGLYCERIN 0.1 MG/PATCH (NITRO-DUR) TD NR (16:30)
[2017-10-29 17:00] VITALS: BP 134/89
[2017-10-29 18:00] VITALS: BP 111/75
[2017-10-29 20:00] VITALS: BP 100/87
[2017-10-29] MEDS ORDERED: cloNIDine 0.1 MG (CATAPRES) TAB PO SCH (21:00)
[2017-10-29] MEDS ORDERED: APIXABAN 5 MG (ELIQUIS) TABLET PO SCH (21:00)
[2017-10-30 00:12] VITALS: BP 120/85
[2017-10-30] MEDS: NITROGLYCERIN 0.4 MG SL TABS BTL 25'S SL PRN (01:09)
[2017-10-30 04:00] VITALS: BP 141/87
[2017-10-30] MEDS ORDERED: NITROGLYCERINE PATCH REMOVAL TP SCH (05:00)
[2017-10-30 05:55] LABS: HEMOGLOBIN 14.5 G/DL (13.3-17.7); MEAN PLATELET VOLUME 9.9 FL (7.4-10.4); RED BLOOD COUNT 4.91 10^6/uL (4.35-5.85); RED CELL DISTRIBUTION WIDTH 13.6 % (10.0-14.5); WHITE BLOOD COUNT 8.6 10^3/uL (4.3-11.0)
[2017-10-30 06:14] LABS: BUN/CREATININE RATIO 17; CALCIUM 8.9 MG/DL (8.5-10.1); CARBON DIOXIDE 23 MMOL/L (21-32); CHLORIDE 100 MMOL/L (98-107); GFR ESTIMATED > 60; GLUCOSE 109 MG/DL (70-105); POTASSIUM 3.1 MMOL/L (3.6-5.0); SODIUM 135 MMOL/L (135-145)
[2017-10-30] MEDS: NS IV 1000 ML 1,000 ML IV SCH ×2 (06:36→07:04)
[2017-10-30 07:00] VITALS: BP 135/106
[2017-10-30] MEDS ORDERED: KCL 20 MEQ TAB (K-DUR) PO NR (07:30)
--- NOTE | 2017-10-30 07:36 | Cardiology Progress Note ---
Subjective Date Seen by Provider: Oct 30, 2017 Time Seen by Provider: 07:34 Subjective/Events-last exam Patient is in bed, feeling well, denied any further episodes of chest pain, no shortness of breath. He is in atrial flutter Review of Systems General: No Chills, No Night Sweats, No Fatigue, No Malaise, No Appetite, No Other HEENT: No Head Aches, No Visual Changes, No Eye Pain, No Ear Pain, No Dysphasia , No Sinus Congestion, No Post Nasal Drip, No Sore Throat, No Other Pulmonary: No Dyspnea, No Cough, No Pleuritic Chest Pain, No Other Cardiovascular: No: Chest Pain, Palpitations, Orthopnea, Paroxysmal Noc. Dyspnea, Edema, Lt Headedness, Other Objective-Cardiology Exam Last Set of Vital Signs Vital Signs 10/30/17 04:00 Temp 98.0 Pulse 80 Resp 19 B/P (MAP) 141/87 (105) Pulse Ox 94 O2 Delivery Room Air Capillary Refill : Less Than 3 Seconds I&O Intake and Output 10/30/17 00:00 Intake Total 740 ml Output Total 1425 ml Balance -685 ml Intake Oral 740 ml Output Urine Total 1425 ml General: Alert, Oriented X3, Cooperative HEENT: Atraumatic, PERRLA Neck: Supple, No JVD, No Thyromegaly Lungs: Clear to Auscultation, Normal Air Movement Heart: Regular Rate, Normal S1, Normal S2, No Murmurs Abdomen: Normal Bowel Sounds, Soft, No Tenderness, No Hepatosplenomegaly, No Masses Extremities: No Clubbing, No Cyanosis, No Edema, Normal Pulses, No Tenderness/ Swelling Skin: No Rashes, No Breakdown, No Significant Lesion Neuro: Normal Gait, Normal Speech, Strength at 5/5 X4 Ext, Normal Tone, Sensation Intact Psych/Mental Status: Mental Status NL, Mood NL Results Lab Laboratory Tests 10/29/17 11:05 10/30/17 05:36 A/P-Cardiology Admission Diagnosis Coronary artery disease Paroxysmal atrial flutter Hypertension Hyperlipidemia Assessment/Plan Coronary artery disease, abnormal stress test, status post stenting to the LAD, has severe stenosis at the ostium of the diagonal artery that is treated medically, had a balloon angioplasty done to the ostium of the LAD without improvement. Paroxysmal atrial fibrillation, history of ablation, now in atrial flutter. Replace potassium and monitor as an outpatient Hypertension, controlled, continue current medications Hyperlipidemia, LDL 108, start low-dose statin History of hemoptysis. FERMIN MEZA MD Oct 30, 2017 07:36
[2017-10-30] MEDS ORDERED: ASPI-983 PO (07:37)
[2017-10-30] MEDS ORDERED: CLOP75TA28 PO (07:37)
[2017-10-30] MEDS ORDERED: ATOR10TA PO (07:38)
--- NOTE | 2017-10-30 07:47 | Discharge Inst-Post CATH ---
Discharge Inst-CATH Post Cardiac Cath D/C Inst Follow Up/Plan Continue on propafenone 225 mg every [address] Marina's office in 2 weeks Appointment with EP in one to 2 weeks CARDIAC CATH DISCHARGE INSTRUCTIONS *Hold Metformin for 48 hours post heart cath. ACTIVITY * Go Home directly and rest. * Limit activity of the leg (or wrist if it was used) for 7 days including aerobics, swimming, jogging, bicycling, etc. * Restrict stair-climbing for 7 days if possible, if not, climb up with your non -cath leg, then bring together on the same step. * Avoid lifting, pushing, pulling or excessive movement of the affected extremity for 7 days. * Customary sexual activity may be resumed after 2 days-use caution not to use a position that strains or causes pain to the affected extremity. * No driving for 24 hours. * NO SMOKING. * Avoid straining for bowel movements for 7 days. * Gentle walking on level ground is allowed. * Returning to work will depend on the type of procedure and the results. Your doctor will discuss this with you. CALL YOUR DOCTOR FOR ANY OF THE FOLLOWING: *If bleeding from the puncture site occurs- Apply gentle pressure to site with clean cloth and call your doctor or EMS. * If a knot or lump forms under the skin, increases in size, or causes pain. * If bruising appears to be worsening or moving further down your leg instead of disappearing. * Temperature above 101 F. CARE OF YOUR GROIN INCISION; * Bruising or purple discoloration of the skin near the puncture site is common. * You may shower only, no bathtub bathing for 5 days. Be careful to avoid slipping as your leg may feel stiff. * If a closure device was used on your femoral artery, please see the attached guide regarding care of the device and your leg. * REMOVE the dressing from your groin the next day after your procedure in the shower. CARE OF YOUR WRIST INCISION; * Bruising or purple discoloration of the skin near the puncture site is common. * You may shower. * DO NOT submerge wrist. * Remove dressing in 24 hours. FERMIN MARINA MD Oct 30, 2017 07:47
[2017-10-30 08:00] VITALS: BP 131/86
[2017-10-30] MEDS ORDERED: PROP225T2 PO (08:13)
[2017-10-30] MEDS ORDERED: CLOPIDOGREL 75 MG (PLAVIX) TABLET PO SCH (09:00)
[2017-10-30] MEDS ORDERED: ASPIRIN E.C. 81 MG (ECOTRIN) TAB PO SCH (09:00)
[2017-10-30] MEDS ORDERED: LOSARTAN 100 MG (COZAAR) TABLET PO SCH (09:00)
--- NOTE | 2017-10-30 09:50 | Electrophysiology Consultation ---
HPI-Cardiology Cardiology Consultation: Date of Consultation 10/29/17 Date of Admission Attending Physician Lashae Marina MD Admitting Physician Micky Colvin MD Consulting Physician Nidia GILBERT MD HPI: Time Seen by Provider: 16:30 Chief Complaint: atrial fibrillation This is a late entry. Patient was seen yesterday evening. This is a 77-year-old patient of Dr. Marina who had complained of chest pain and underwent PCI of the LAD. EP was consulted for paroxysmal atrial fibrillation. Patient has history of ablation 1 year ago. I'm unclear whether the ablation was for atrial fibrillation or for atrial flutter. However according to the patient he started developing atrial fibrillation again and was started on propafenone. He was previously on Coumadin but had hemoptysis therefore was changed to Eliquis. Extensive workup was done in [place] but no cause of hemoptysis was found. Patient denies any liver disease. He has no other history of bleeding in the past. He is not an alcoholic and has stable blood pressure on treatment. The patient was having mild chest pain 2/10 when I saw the patient. EKG did not show any significant ST-T wave abnormalities. Dr. Marina has already been notified of the chest pain. Review of Systems-Cardiology Review of Systems Constitutional: As described under HPI; No As described under HPI, No no symptoms reported, No chills, No fever, No lightheadedness Eyes: No As described under HPI, No no symptoms reported, No blindness, No blurred vision, No contact lenses, No drainage, No decreased acuity, No foreign body sensation, No pain, No vision change Ears/Nose/Throat: No As described under HPI, No no symptoms reported, No chronic hearing loss, No ear discharge, No ear pain, No nasal drainage, No ulcerations Respiratory: No no symptoms reported; As described under HPI; No As described under HPI, No cough, No orthopnea, No shortness of breath, No SOB with excertion Cardiovascular: No no symptoms reported; As described under HPI; No As described under HPI; chest pain; No edema; irregular heart rate; No lightheadedness, No palpitations Gastrointestinal: No no symptoms reported, No As described under HPI, No abdomen distended, No abdominal pain, No blood streaked bowels, No constipation , No diarrhea, No nausea, No vomiting, No stool coloration changes Genitourinary: No As described under HPI, No burning, No dysuria, No discharge , No frequency, No flank pain, No hematuria, No urgency Musculoskeletal: No no symptoms reported, No As describe under HPI, No back pain, No gout, No joint pain, No joint swelling, No muscle pain, No muscle stiffness, No neck pain, No other Skin: No no symptoms reported, No As described under HPI, No change in color, No change in hair/nails, No dryness, No lesions, No lumps, No rash, No other, No skin related problems, No ulcerations, No rash on exposed areas, No ulcerations on exposed areas Psychiatric/Neurological: No anxiety, No depression, No seizure, No focal weakness, No syncope Hematologic: No bleeding abnormalities [id number] Hx Patient Social History Smoking Status: Former Smoker Type Used: Cigarettes 2nd Hand Smoke Exposure: No Recent Foreign Travel: No Recent Infectious Disease Expo: No Immunizations Up To Date Tetanus Booster (TDap): Unknown Date of Pneumonia Vaccine: Aug 26, 2016 Date of Influenza Vaccine: Dec 02, 2016 Past Medical History PMH As described under Assessment. Family Medical History Family History: Cardiovascular disease 19 FATHER 19 MOTHER Dementia 19 MOTHER FH: gastric ulcer 19 FATHER Thyroid disease DAUGHTER Allergies and Home Medications Allergies Coded Allergies: No Known Drug Allergies (Unverified , 05/25/17) Home Medications Amlodipine Besylate 10 Mg Tablet, 10 MG PO NOON, (Reported) Apixaban 5 Mg Tablet, 5 MG PO BID, (Reported) Aspirin 81 Mg Tablet.dr, 81 MG PO DAILY Prescribed by: LASHAE MARINA on 10/30/17 0737 Atorvastatin Calcium 10 Mg Tablet, 10 MG PO DAILY Prescribed by: LASHAE MARINA on 10/30/17 0738 Clonidine HCl 0.1 Mg Tablet, 0.05 MG PO BID, (Reported) Clopidogrel Bisulfate 75 Mg Tablet, 75 MG PO DAILY Prescribed by: LASHAE MARINA on 10/30/17 0737 Losartan Potassium 100 Mg Tablet, 100 MG PO DAILY, (Reported) Magnesium Oxide 400 Mg Tablet, 400 MG PO NOON, (Reported) Metronidazole 45 Gm Gel..gram., TP DAILY PRN for RASH, (Reported) APPLIES TO FACE Multivitamin 1 Each Tablet, 1 TAB PO DAILY, (Reported) Propafenone HCl 225 Mg Tablet, 225 MG PO TID, (Reported) Tamsulosin HCl 0.4 Mg Cap.er.24h, 0.4 MG PO HS, (Reported) Patient Home Medication List Home Medication List Reviewed: Yes Physical Exam-Cardiology Physical Exam Vital Signs/I&O 10/30/17 10/30/17 10/30/17 10/30/17 00:00 00:12 01:00 04:00 Temp 98.2 98.0 Pulse 76 88 Resp 14 B/P (MAP) 120/85 (97) Pulse Ox 96 O2 Delivery Room Air 10/30/17 10/30/17 10/30/17 10/30/17 04:00 07:00 07:00 08:00 Pulse 80 98 98 85 Resp 19 16 B/P (MAP) 141/87 (105) 135/106 (116) 131/86 (101) Pulse Ox 94 97 O2 Delivery Room Air Room Air Room Air 10/30/17 08:40 B/P (MAP) 10/30/17 00:00 Intake Total 740 ml Output Total 1425 ml Balance -685 ml Capillary Refill : Less Than 3 Seconds Constitutional: appears stated age, AAO x 3; No apparent distress; well- developed, well-nourished HEENT: PERRL; No normal ENT inspection, No TMs normal, No pharynx normal, No scleral icterus (R), No scleral icterus (L), No pale conjunctivae (R), No pale conjunctivae (L), No photophobia, No TM abnormal (R), No TM abnormal (L), No pharyngeal erythema, No tonsillar exudate, No other, No discharge, No EOMI; hearing is well preserved; No hard of hearing; oral hygience is good; No ulceration, No xanthelasmas are seen Neck: No carotid bruit; carotid pulses are 2 + bilaterally Respiratory: No accessory muscle use, No respiratory distress, No chest tender , No chest expansion is symmetric; chest is bilaterally symmetric; No lungs clear to percussion; lungs clear to auscultation; No crackles, No rhonchi, No rales, No stridor, No wheezing, No pleural rub, No other Cardiovascular: No regular rate-rhythm; irregularly irregular; No extra beats, No parasternal heave is noted, No JVD, No edema, No bradycardia, No tachycardia , No point of maximal impulse, No cardiac thrills are palpable; S1 and S2; No gallop/S3, No gallop/S4, No diastolic murmur, No systolic murmur, No friction rub, No click, No other Gastrointestinal: No tender, No soft, No round, No distended, No pulsatile mass , No organomegaly, No guarding, No rebound, No tenderness, No hernia, No mass, No audible bowel sounds, No abnormal bowel sounds, No abdominal bruits, No spleenomegaly, No other Rectal: deferred Extremities: No normal range of motion, No non-tender, No normal inspection, No pedal edema, No calf tenderness, No normal capillary refill, No pelvis stable , No calf tenderness, No inflammation, No pedal edema, No slow capillary refill , No swelling, No other, No abrasion, No clubbing, No cyanosis, No ecchymosis, No laceration, No no lower extremity edema bilateral, No significant edema, No tenderness, No wound Neurologic/Psychiatric: no motor/sensory deficits, alert, normal mood/affect, oriented x 3, power is 5/5 both on sides Skin: No normal color, No warm/dry, No cyanosis, No cool, No diaphoresis, No damp, No ecchymosis, No jaundice, No mottled, No pallor, No rash, No tattoos/ piercings, No ulcerations, No rash on exposed areas, No ulcerations on exposed areas, No other Data Review Labs Laboratory Tests 10/29/17 11:05: White Blood Count 6.3, Red Blood Count 5.02, Hemoglobin 14.7, Hematocrit 43, Mean Corpuscular Volume 86, Mean Corpuscular Hemoglobin 29, Mean Corpuscular Hemoglobin Concent 34, Red Cell Distribution Width 13.6, Platelet Count 173, Mean Platelet Volume 9.9, Prothrombin Time 14.4, INR Comment 1.1, Activated Partial Thromboplast Time 30, Sodium Level 141, Potassium Level 3.5L, Chloride Level 105, Carbon Dioxide Level 27, Anion Gap 9, Blood Urea Nitrogen 17, Creatinine 0.96, Estimat Glomerular Filtration Rate > 60, BUN/Creatinine Ratio 18, Glucose Level 92, Calcium Level 9.4, Corrected Calcium 9.0, Total Bilirubin 1.0, Aspartate Amino Transf (AST/SGOT) 21, Alanine Aminotransferase (ALT/SGPT) 7 , Alkaline Phosphatase 74, Total Protein 7.4, Albumin 4.5, Triglycerides Level 112, Cholesterol Level 164, LDL Cholesterol Direct 108, VLDL Cholesterol 22, HDL Cholesterol 41 10/30/17 05:36: White Blood Count 8.6, Red Blood Count 4.91, Hemoglobin 14.5, Hematocrit 42, Mean Corpuscular Volume 86, Mean Corpuscular Hemoglobin 30, Mean Corpuscular Hemoglobin Concent 34, Red Cell Distribution Width 13.6, Platelet Count 188, Mean Platelet Volume 9.9, Sodium Level 135, Potassium Level 3.1L, Chloride Level 100, Carbon Dioxide Level 23, Anion Gap 12, Blood Urea Nitrogen 12, Creatinine 0.70, Estimat Glomerular Filtration Rate > 60, BUN/Creatinine Ratio 17, Glucose Level 109H, Calcium Level 8.9 ECG Impression ECG Comment Atrial flutter A/P-Cardiology Assessment/Admission Diagnosis Atrial flutter, atrial fibrillation, PCI with drug-eluting stent, Chest pain, History of hemoptysis, Hypertension Plan Patient has atrial flutter with variable AV block. History of paroxysmal atrial fibrillation. Records are not available but the patient has had some kind of an ablation. Unsure if it was atrial flutter or atrial fibrillation ablation. However the patient has developed recurrent atrial flutter/atrial fibrillation. He is on propafenone. We will continue propafenone. The patient follows regularly with the EP in [place]. I will defer to the patient to decide about EP follow-up in the future. The other question that Dr. Marina had asked was about oral anticoagulation therapy and antiplatelet therapy since Dr. Marina has done a complicated PCI with drug-eluting stent to mid LAD with ostial pinching off a large first diagonal. The patient although had hemoptysis 2-3 months ago on Coumadin however no reason was found after extensive workup in [place]. He was started on Eliquis at that point in time. I would recommend dual antiplatelet therapy for at least 1 month and continue Eliquis throughout. After one month aspirin can be discontinued and patient can be continued on Plavix and Eliquis for the next 1 year. After that Plavix can be discontinued and patient can be on long-term aspirin and Eliquis. Patient is otherwise at low risk of bleeding according to the HAS-BLED score. However I did educate the patient that there is a risk of bleeding with triple therapy. I discussed with Dr. Marina as well. Thank you for your consultation. Please call me if you have any questions. Juan Carlos Gilbert MD, FACP, FACC, FSCAI, FHRS, CCDS Interventional Cardiology Cardiac Electrophysiology Vascular Medicine and Endovascular Interventions Nidia GILBERT MD Oct 30, 2017 09:50
== END 2017-10-30 08:40 | disposition home or self-care (01) ==
LOC: CATH 10:46 → ICU 14:50 → CATH 10-30 08:40
PROVIDERS: ATTEND Internal Medicine Cardiovascular Disease
DX: I25.10 Atherosclerotic heart disease of native coronary artery without angina pectoris (principal); I48.2 Chronic atrial fibrillation; I10 Essential (primary) hypertension; E78.2 Mixed hyperlipidemia; Z79.899 Other long term (current) drug therapy; Z79.01 Long term (current) use of anticoagulants; Q21.1 Atrial septal defect; E05.90 Thyrotoxicosis, unspecified without thyrotoxic crisis or storm; N40.0 Benign prostatic hyperplasia without lower urinary tract symptoms; I27.20 Pulmonary hypertension, unspecified; I65.23 Occlusion and stenosis of bilateral carotid arteries
CPT/HCPCS: 36415; 71045; 80048; 80053; 80061; 85027; 85347; 85610; 85730; 87081; 93005; 93458

== ENCOUNTER → 2018-10-15 | Outpatient (CLI) | payer MEDICARE ==
[~2018-10-15] MED LIST changes: -AMLO10TA6 PO; +AMLO10TA7 PO; +APIX5TAB PO; +ATOR10TA PO; +CLOP75TA28 PO; -LIDOCAINE 1% INJ 20 ML 20 ML VIAL ONE; +LOSA100T57 PO; -LOSA100T8 PO; +MAGN400T39 PO; +PROP225T2 PO
== END ==
LOC: CARD 10:46
PROVIDERS: ATTEND Internal Medicine Cardiovascular Disease
DX: I08.3 Combined rheumatic disorders of mitral, aortic and tricuspid valves (principal); I10 Essential (primary) hypertension; I48.0 Paroxysmal atrial fibrillation; I25.10 Atherosclerotic heart disease of native coronary artery without angina pectoris; E78.2 Mixed hyperlipidemia
CPT/HCPCS: 93306

== ENCOUNTER → 2018-10-16 | Outpatient (CLI) | payer MEDICARE ==
[~2018-10-16] VITALS: Ht 175.3 cm; Wt 84.4 kg
[~2018-10-16] MED LIST changes: +CATHETER FLUSH 10 ML SYR IV PRN
[2018-10-16 08:30] VITALS: BP 148/90
[2018-10-16 08:40] VITALS: BP 159/84
--- NOTE | 2018-10-16 15:13 | STRESS TEST ---
DATE OF SERVICE: 10/16/2018 EXERCISE MYOVIEW STRESS TEST REFERRING PHYSICIAN: Dr. Colvin. Baseline heart rate is 53. Baseline blood pressure 157/91. Baseline EKG is sinus rhythm with no ischemic changes. In summary, the patient was injected with 10.91 mCi of technetium-99 Myoview and the resting images were obtained. Then, the patient started exercising with a baseline heart rate and blood pressure mentioned above. During exercise, the patient had frequent premature ventricular contractions. He was able to exercise for a total of 6 minutes 15 seconds on standard Alexander protocol. With peak exercise level, EKG was showing minimal nondiagnostic changes. During recovery, heart rate and blood pressure returned to baseline. EKG returned to baseline. The resting and stress images were reviewed and compared in the short axis, horizontal long axis, and vertical long axis views. Review of the images showed dilated left ventricle with decreased uptake at the mid to apical anterior wall with subtle reversibility. SSS is 4, SDS 2, TID value 1.05. On the gated images, the left ventricle is dilated with diffuse left ventricular with preserved systolic function. Calculated ejection fraction 58%. CONCLUSION: 1. Fair exercise tolerance, a total of 6 minutes 15 seconds on standard Alexander protocol, total of 7.1 METS achieving 83% of maximum expected heart rate. 2. Frequent PVCs at peak stress level resolved during recovery with minimal nondiagnostic EKG changes with exercise returned to baseline during recovery. 3. Mild decreased uptake at the anteroapical segment with mild reversibility, no significant ischemia was noted. 4. Normal left ventricular size with normal contractility. Calculated ejection fraction 58%. Job ID: [id number] DocumentID: [id number] Dictated Date: 10/16/2018 12:05:24 [employer] Work[employer] Date: 10/16/2018 15:12:43 Dictated By: FERMIN MEZA MD
== END ==
LOC: CARD 06:46
PROVIDERS: ATTEND Internal Medicine Cardiovascular Disease
DX: I25.10 Atherosclerotic heart disease of native coronary artery without angina pectoris (principal); I48.0 Paroxysmal atrial fibrillation; E78.2 Mixed hyperlipidemia; I10 Essential (primary) hypertension
CPT/HCPCS: 78452; 93017

== ENCOUNTER → 2018-12-15 | Outpatient (CLI) | payer MEDICARE ==
[~2018-12-15] MED LIST changes: -CATHETER FLUSH 10 ML SYR IV PRN
--- NOTE | 2018-12-15 13:30 | Diagnostic Imaging Report ---
PROCEDURE: CT abdomen and pelvis without contrast. TECHNIQUE: Multiple contiguous axial images were obtained through the abdomen and pelvis without the use of intravenous contrast. Auto Exposure Controls were utilized during the CT exam to meet ALARA standards for radiation dose reduction. INDICATION: Gross hematuria. COMPARISON: Correlation is made with prior CT from 05/25/2017. FINDINGS: The lung bases are clear. No discrete liver mass is detected. Gallbladder is unremarkable. No biliary ductal dilatation is seen. The pancreas and spleen are unremarkable. No adrenal mass is detected. Tiny nonobstructing calculi in the lower pole of the right kidney are noted. No definite ureteral calculi or hydronephrosis is seen. Unopacified bladder is unremarkable. Aorta is calcified but nonaneurysmal. Small and large bowel loops appear to be nonobstructive. There is moderate stool throughout the colon, consistent with constipation. Appendix is unremarkable. No free fluid or fluid collection is identified. There is prostatic enlargement noted. Bony structures are nonacute. IMPRESSION: 1. Tiny nonobstructing right-sided renal calculi. No ureteral calculi or hydronephrosis is seen. 2. Moderate stool throughout the colon, suggestive of constipation. 3. Prostatomegaly. Dictated by: Dictated on workstation # [id number]
== END ==
LOC: RAD 13:05
PROVIDERS: ATTEND Urology
DX: N40.0 Benign prostatic hyperplasia without lower urinary tract symptoms (principal)
CPT/HCPCS: 74176

== ENCOUNTER → 2019-01-28 | Outpatient (CLI) | payer MEDICARE ==
--- NOTE | 2019-01-28 11:09 | Diagnostic Imaging Report ---
INDICATION: PAF,COMBINED HYPERLIPIDEMIA, HTN, CAD. TECHNIQUE: Two views of the chest. COMPARISON: 10/29/2017 FINDINGS: The lung volumes are normal. No focal consolidation is seen. No large pleural effusion or pneumothorax is seen. The cardiomediastinal silhouette is normal in size and contour. No acute osseous abnormality is seen. A monitoring tech device is noted. IMPRESSION: No acute pulmonary abnormality seen. Dictated by: Dictated on workstation # [id number]
== END ==
LOC: RAD 10:35
PROVIDERS: ATTEND Internal Medicine Cardiovascular Disease
DX: I48.0 Paroxysmal atrial fibrillation (principal); I25.10 Atherosclerotic heart disease of native coronary artery without angina pectoris; E78.2 Mixed hyperlipidemia; I10 Essential (primary) hypertension; Z95.818 Presence of other cardiac implants and grafts
CPT/HCPCS: 71046

== ENCOUNTER → 2019-07-13 | Outpatient (CLI) | payer MEDICARE ==
[~2019-07-13] MED LIST changes: -MAGN400T6 PO; +MAGN400T8 PO; +PROP150T PO
--- NOTE | 2019-07-13 19:23 | Diagnostic Imaging Report ---
PROCEDURE: US Thyroid. TECHNIQUE: Multiple real-time grayscale images were obtained of the thyroid in various projections. INDICATION: Abnormal TSH. COMPARISON: Comparison with ultrasound of the thyroid dated 01/08/2017. FINDINGS: The right lobe measures 6.5 x 3.8 x 3.7 cm. Left lobe measures 5.6 x 2.8 x 2.7 cm. Both lobes are very heterogeneous in nature. No discrete masses have developed. There is normal blood flow to both lobes. IMPRESSION: Very heterogeneous appearance with enlarged lobes bilaterally. No appreciable change has occurred when compared with previous examination. TI-RADS 3. Dictated on workstation # [id number]
== END ==
LOC: RAD 12:02
PROVIDERS: ATTEND Physician Assistant
DX: R94.6 Abnormal results of thyroid function studies (principal)
CPT/HCPCS: 76536

== ENCOUNTER → 2019-11-01 | Outpatient (CLI) | payer MEDICARE ==
[~2019-11-01] VITALS: Ht 175 cm; Wt 81.0 kg
[~2019-11-01] MED LIST changes: +ASPI-1238 PO; -ASPI-983 PO; +CATHETER FLUSH 10 ML SYR IV PRN; +MULT-567 PO; -MULT1TAB69 PO; +REGADENOSON 0.4 MG/5 ML SYR (LEXISCAN) IV ONE; +WARF4TAB3; -WARF4TAB70
[2019-11-01 10:04] VITALS: BP 174/102
--- NOTE | 2019-11-01 12:43 | Cardiology Stress Test Report ---
Stress Test Report Date of Procedure/Referring: Date of Procedure: Nov 01, 2019 Raysa Bliss Admitting Physician Micky Colvin MD Indications: Coronary artery disease Baseline Heart Rate: 58 Baseline Blood Pressure: Blood Pressure Systolic: 174 Blood Pressure Diastolic: 102 Baseline Vitals Vital Signs Date Time Temp Pulse Resp B/P (MAP) Pulse Ox O2 Delivery O2 Flow Rate FiO2 11/01/19 10:04 56 17 174/102 (126) 97 Room Air Baseline EKG: Baseline EKG: normal sinus rhythm Summary After explaining the procedure to the patient, he signed a consent and then brought to the stress nuclear laboratory. Patient received 0.4 mg Lexiscan for stress test, ECG, heart rate and blood pressure were monitored continuously. Resting and stress dose of radio tracer were injected, imaging was acquired and reviewed in short axis, horizontal long axis and vertical long axis views. TID: 0.98 SSS: 9 SDS: 7 EF: 55 1. Patient tolerated Lexiscan well 2. Diaphragmatic attenuation with reversible ischemia involving the mid to apical anterior wall and anterolateral wall 3. Normal left ventricular size, EF 55 percent FERMIN MEZA MD Nov 01, 2019 12:43
== END ==
LOC: CARD 08:45
PROVIDERS: ATTEND Physician Assistant
DX: I25.10 Atherosclerotic heart disease of native coronary artery without angina pectoris (principal); J98.6 Disorders of diaphragm; E78.2 Mixed hyperlipidemia; I10 Essential (primary) hypertension; I48.0 Paroxysmal atrial fibrillation
CPT/HCPCS: 78452; 93017; A9502

== ENCOUNTER 2019-11-10 10:00 | Day surgery (SDC) | payer MEDICARE ==
[2019-11-10] VITALS (10 sets, daily range): BP systolic 127–159; BP diastolic 75–86
[~2019-11-10] VITALS: Ht 178 cm; Wt 82.0 kg
[2019-11-10 08:31] LABS: BILIRUBIN,URINE NEGATIVE (NEGATIVE); CLARITY,URINE CLEAR; COLOR,URINE YELLOW; GLUCOSE, URINE (UA) NEGATIVE (NEGATIVE); HEMOGLOBIN 14.8 g/dL (13.3-17.7); KETONES,URINE TRACE (NEGATIVE); LEUKOCYTE ESTERASE ,URINE NEGATIVE (NEGATIVE); NITRITE,URINE NEGATIVE (NEGATIVE); PH,URINE 6.5 (5-9); PROTEIN,URINE TRACE (NEGATIVE); WHITE BLOOD COUNT 5.8 10^3/uL (4.3-11.0)
[2019-11-10 08:40] LABS: BACTERIA,URINE TRACE /HPF; RBC,URINE 25-50 /HPF; SQUAMOUS EPITHELIAL CELL,UR 0-2 /HPF; WBC,URINE 0-2 /HPF
--- NOTE | 2019-11-10 08:47 | Cardiac Procedure Note-CS/ASA ---
Pre-Procedure Note Pre-Op Procedure Note H&P Reviewed The H&P was reviewed, patient examined and no changes noted. Date H&P Reviewed: Nov 10, 2019 Time H&P Reviewed: 08:46 Conscious Sedation Pre-Proced Time 08:46 ASA Score 3 For ASA 3 and 4: Consider anesthesia and medical clearance. Also, for patients with a history of failed moderate sedation consider anesthesia. Airway Lungs Heart ASA score ASA 1: a normal healthy patient ASA 2: a patient with a mild systemic disease (mid diabetes, controlled hypertension, obesity X ASA 3: a patient with a severe systemic disease that limits activity (angina, COPD, prior Myocardial infarction) ASA 4: a patient with an incapacitating disease that is a constant threat to life (CHF, renal failure) ASA 5: a moribund patient not expected to survive 24 hrs. (ruptured aneurysm) ASA 6: a declared brain- patient whose organs are being harvested. For emergent operations, add the letter E after the classification Mallampati Classification Grade 3 Sedation Plan Analgesia, Amnesia, Plan communicated to team members, Discussed options with patient/fam, Discussed risks with patient/fam The patient is an appropriate candidate to undergo the planned procedure, sedation, and anesthesia. The patient immediately re-assessed prior to indication. FERMIN MEZA MD Nov 10, 2019 08:47
--- NOTE | 2019-11-10 08:57 | NUR ---
SPOKE WITH THE PT (HOME MEDS ARE WITH HIM) TO COMPLETE THE MED REC 08-02-2019 AMLODIPINE 5MG #90/90DS 08-25-2019 LOSARTAN 100MG #90/90DS 08-25-2019 CLOPIDOGREL 75MG #90/90DS 08-25-2019 ELIQUIS 5MG #180/90DS 09-09-2019 ATORVASTATIN 10MG #90/90DS 09-09-2019 CLONIDINE 0.1MG #90/90DS (PT TAKES TAB BID) 09-09-2019 TAMSULOSIN 0.4MG #90/90DS 09-19-2019 POTASSIUM CHLORIDE ER 10 MEQ #90/90DS 10-29-2019 MULTAQ 400MG #36/18DS- SAMPLE FROM DR. SORIA OFFICE OTC MEDS (PT DID NOT BRING THESE): MELATONIN BENADRYL MIRALAX BENEFIBER MAGNESIUM [employer] ACCORDING TO THE PT HE TAKES MELATONIN AND BENADRYL EVERY NIGHT NOT JUST PRN
[2019-11-10 08:58] LABS: ALANINE AMINOTRANSFERASE 11 U/L (0-55); ALBUMIN 4.5 GM/DL (3.2-4.5); ALKALINE PHOSPHATASE 69 U/L (40-136); BUN/CREATININE RATIO 14; CALCIUM 9.1 MG/DL (8.5-10.1); CARBON DIOXIDE 27 MMOL/L (21-32); CHLORIDE 106 MMOL/L (98-107); CHOLESTEROL 116 MG/DL (< 200); CREATININE SERUM 0.92 MG/DL (0.60-1.30); GFR ESTIMATED > 60; GLUCOSE 86 MG/DL (70-105); HDL CHOLESTEROL 44 MG/DL (40-60); POTASSIUM 3.5 MMOL/L (3.6-5.0); SODIUM 142 MMOL/L (135-145); TOTAL PROTEIN 7.5 GM/DL (6.4-8.2); TRIGLYCERIDES 67 MG/DL (<150); VLDL CHOLESTEROL 13 MG/DL (5-40)
--- NOTE | 2019-11-10 08:59 | Diagnostic Imaging Report ---
INDICATION: Chest pain and coronary artery disease. Time of exam 8:39 AM Correlation is made with prior chest from 01/28/2019. Heart size normal. Monitoring device overlies the left mid lung. Lungs are clear. No infiltrate, effusion or pneumothorax is detected. IMPRESSION: No acute cardiopulmonary process is detected. Dictated by: Dictated on workstation # [id number]
[2019-11-10 09:10] LABS: INR 1.2 (0.8-1.4); PROTHROMBIN TIME PATIENT 15.4 SEC (12.2-14.7)
[~2019-11-10 10:00] MED LIST changes: +AMLO5TAB9 PO; +ATOR10TA66 PO; -CATHETER FLUSH 10 ML SYR IV PRN; +DIPH25CA48 PO; +DRON400T2 PO; +HEParin (CATH LAB) 2,000 ML IV ONE; +LIDOCAINE 1% INJ 20 ML 20 ML VIAL ONE; +MELA5TAB14 PO; +MIDAZOLAM 5 MG/5 ML (VERSED) VIAL ONE; +MULT-1136 PO; +NS IV 1000 ML 1,000 ML IV SCH; +NS IV 1000 ML 1,000 ML ONE; +POLY17PO6 PO; +POTA10CA43 PO; -REGADENOSON 0.4 MG/5 ML SYR (LEXISCAN) IV ONE; +TMSL.4C PO; +WHEA1POW6 PO; +fentaNYL INJECTION 100 MCG/2 ML AMP ONE
[2019-11-10] MEDS ORDERED: NS IV 1000 ML 1,000 ML IV SCH (10:02)
--- NOTE | 2019-11-10 10:04 | Discharge Inst-Post CATH ---
Discharge Inst-CATH/EP Problems Reviewed?: Yes Post Cardiac Cath/EP D/C Inst Follow Up/Plan Appointment with Dr. MEZA's office in 4 weeks <b>CARDIAC CATH/EP PROCEDURE DISCHARGE INSTRUCTIONS</b> ACTIVITY * Go Home directly and rest. * Limit activity of the leg (or wrist if it was used) for 7 days including aerobics, swimming, jogging, bicycling, etc. * Restrict stair-climbing for 7 days if possible, if not, climb up with your non-cath leg, then bring together on the same step. * Avoid lifting, pushing, pulling or excessive movement of the affected extremity for 7 days. * Customary sexual activity may be resumed after 2 days-use caution not to use a position that strains or causes pain to the affected extremity. * No driving for 24 hours. * NO SMOKING. * Avoid straining for bowel movements for 7 days. * Gentle walking on level ground is allowed. * Returning to work will depend on the type of procedure and the results. Your doctor will discuss this with you. CALL YOUR DOCTOR FOR ANY OF THE FOLLOWING: *If bleeding from the puncture site occurs- Apply gentle pressure to site with clean cloth and call your doctor or EMS. * If a knot or lump forms under the skin, increases in size, or causes pain. * If bruising appears to be worsening or moving further down your leg instead of disappearing. * Temperature above 101 F. CARE OF YOUR GROIN INCISION; * Bruising or purple discoloration of the skin near the puncture site is common. * You may shower only, no bathtub bathing for 5 days. Be careful to avoid slipping as your leg may feel stiff. * If a closure device was used on your femoral artery, please see the attached guide regarding care of the device and your leg. * Leave dressing on FOR 24 hours. CARE OF YOUR WRIST INCISION; * Bruising or purple discoloration of the skin near the puncture site is common. * You may shower. * DO NOT submerge wrist. * Leave dressing on FOR 24 hours. FERMIN MEZA MD Nov 10, 2019 10:04 am
--- NOTE | 2019-11-10 10:07 | Cardiac Cath Report ---
Cardiac Cath Report Physician (s)/Design Manager (s) Physician FERMIN MEZA MD Pre-Procedure Diagnosis Pre-Procedure Diagnosis: Coronary artery disease Post-Procedure Note Procedure Start Date: Nov 10, 2019 Name of Procedure: Left heart catheterization Findings/Procedure Note PROCEDURE NOTE: 79 years old gentleman with history of coronary artery disease stenting to the LAD, had an abnormal stress test, scheduled for cardiac catheterization possible PTCA After explaining the procedure to the patient, all pros and cons were explained, all questions were answered. The patient signed the consent and then he was placed on the cardiac catheterization laboratory. Groin was prepped SL fashion local anesthesia was used. Sheath placed in the right femoral artery. Marianela right and left catheter were used to access the coronary system. Atkins right catheter was prolapsed of the left ventricular cavity, pressure was measured and a left ventriculogram was not At the end of the procedure the sheath was removed. Closure device was used FINDINGS: Hemodynamics LV 135/15, end-diastolic pressure 15 Aorta 141/74 mean of 97 ANATOMY: Left Main is free of obstructive disease Left Anterior Descending has patent stent proximally, mild to moderate disease at the midportion, severe ostial diagonal artery stenosis that has not changed compared to the previous study of 2018 Left Circumflex is dominant with mild disease nonobstructive disease Right Coronory Artery has mild disease nonobstructive disease LV Gram was not done, pressure was measured CONCLUSION: 1. Patent stent in the proximal LAD, mild to moderate disease distally, the artery tapered down into a very small artery, the first diagonal artery has severe ostial stenosis that has not changed compared to the study of 2018. 2. Otherwise mild coronary artery disease 3. Normal left ventricular end-diastolic pressure DISCUSSION AND RECOMMENDATION: . The fact that the diagonal artery is a very small artery and has not changed, I would continue with medical therapy, abnormal stress test is probably due to small vessel disease. Anesthesia Type: Conscious Sedation Estimated blood loss (mL): 25 ml Contrast Amount: 36 ml Total Radiation Dose: 417 mGy Post-Procedure Diagnosis Post-operative diagnosis: Coronary artery disease Hypertension Hyperlipidemia Chest pain FERMIN MEZA MD Nov 10, 2019 10:07 am
[2019-11-10] MEDS ORDERED: PATIENT MAY USE OWN MEDS, ALL PO SCH (10:15)
== END 2019-11-10 13:10 | disposition home or self-care (01) ==
LOC: CATH 10:00 → SDC 10:15 → CATH 13:10
PROVIDERS: ATTEND Internal Medicine Cardiovascular Disease
DX: I25.10 Atherosclerotic heart disease of native coronary artery without angina pectoris (principal); I10 Essential (primary) hypertension; E78.2 Mixed hyperlipidemia; I48.0 Paroxysmal atrial fibrillation; G89.29 Other chronic pain; M54.5 Low back pain; R94.39 Abnormal result of other cardiovascular function study; Z79.01 Long term (current) use of anticoagulants; Z79.899 Other long term (current) drug therapy; Z80.9 Family history of malignant neoplasm, unspecified
CPT/HCPCS: 71045; 80053; 80061; 81000; 85027; 85610; 85730; 87081; 87088; 93458; C1760; C1894; 36415

== ENCOUNTER → 2020-08-02 | Outpatient (CLI) | payer MEDICARE ==
[~2020-08-02] MED LIST changes: +AMLO-250 PO; +AMLO-251 PO; -AMLO10TA7 PO; -AMLO5TAB9 PO; -CLON0.1T PO; -DRON400T2 PO; +DRON400T6 PO; -HEParin (CATH LAB) 2,000 ML IV ONE; -LIDOCAINE 1% INJ 20 ML 20 ML VIAL ONE; -MIDAZOLAM 5 MG/5 ML (VERSED) VIAL ONE; -NS IV 1000 ML 1,000 ML IV SCH; -NS IV 1000 ML 1,000 ML ONE; -fentaNYL INJECTION 100 MCG/2 ML AMP ONE
== END ==
LOC: LABNPT 06:24
PROVIDERS: ATTEND Emergency Medicine
DX: Z01.812 Encounter for preprocedural laboratory examination (principal); Z20.822 Contact with and (suspected) exposure to COVID-19
CPT/HCPCS: 87635

== ENCOUNTER → 2020-11-07 | Outpatient (CLI) | payer MEDICARE ==
--- NOTE | 2020-11-07 13:40 | Diagnostic Imaging Report ---
INDICATION: Breast tenderness. Technique: Targeted ultrasound retroareolar region of both breasts was obtained. FINDINGS: There appears to be bilateral gynecomastia right greater than left. There is no discrete solid or cystic mass. There are no vascularized areas. IMPRESSION: Category 2 benign findings Bilateral gynecomastia right greater than left ACR BI-RADS Category 2: Benign findings. Dictated by: Dictated on workstation # [id number]
--- NOTE | 2020-11-07 13:41 | Diagnostic Imaging Report ---
Indication: Breast pain. No prior examinations are available for comparison. FINDINGS: There is bilateral gynecomastia right greater than left. There is no discrete mass, spiculated lesion or suspicious calcifications identified. Skin, nipples and axilla are unremarkable. IMPRESSION: Category 2 benign findings Bilateral gynecomastia right greater than left otherwise unremarkable ACR BI-RADS Category 2: Benign findings. Dictated by: Dictated on workstation # [id number]
== END ==
LOC: RAD 12:45
PROVIDERS: ATTEND Internal Medicine
DX: N64.4 Mastodynia (principal)
CPT/HCPCS: 76641; 77066; G0279; 77062

== ENCOUNTER 2021-05-16 11:30 | Day surgery (SDC) | payer MEDICARE ==
[~2021-05-16] VITALS: Ht 177.8 cm; Wt 83.5 kg
[2021-05-16 10:22] VITALS: BP 165/88
--- NOTE | 2021-05-16 11:26 | Implantation of Loop Monitor ---
Implant of Loop Monitior IMPLANTATION OF LOOP MONITOR REPORT DATE OF PROCEDURE: 05/16/21 PREOP DIAGNOSIS: Paroxysmal atrial fibrillation POSTOP DIAGNOSIS: Paroxysmal atrial fibrillation PROCEDURE DETAILS: The patient is a 80 male with history of paroxysmal atrial fibrillation requiring long-term surveillance. Therefore implantable loop recorder was discussed and agreed with the patient. Informed consent was taken. All risks and complications were discussed at length. The patient was draped and prepped in the usual sterile fashion. Local anesthesia was lidocaine, which was given in the substernal area close to the 4th intercostal space. Loop monitor [employer] with serial number [id number] was implanted according to the protocol. Steri- Strips were placed at the end of the procedure. There were no complications and the patient tolerated the procedure well. The device was interrogated with a voltage of. ANESTHESIA: Local anesthesia with lidocaine. COMPLICATIONS: None CONTRAST/FLUOROSCOPY: None CONCLUSION: Successful implantation of loop monitor with no complication FINAL DIAGNOSIS: Paroxysmal atrial fibrillation Palpitation Hypertension Hyperlipidemia FERMIN MEZA MD May 16, 2021 11:26
[~2021-05-16 11:30] MED LIST changes: +LIDOCAINE 1% INJ 50 ML (XYLOCAINE) VIAL ONE
[2021-05-16] MEDS ORDERED: LIDOCAINE 1% INJ 20 ML VIAL INJ ONE (11:45)
== END 2021-05-16 11:43 | disposition home or self-care (01) ==
LOC: CATH 11:30
PROVIDERS: ATTEND Internal Medicine Cardiovascular Disease
DX: I48.0 Paroxysmal atrial fibrillation (principal); R00.2 Palpitations; I10 Essential (primary) hypertension; E78.5 Hyperlipidemia, unspecified; R05.3 Chronic cough; N40.0 Benign prostatic hyperplasia without lower urinary tract symptoms; E05.90 Thyrotoxicosis, unspecified without thyrotoxic crisis or storm; I27.20 Pulmonary hypertension, unspecified; N62 Hypertrophy of breast; I25.10 Atherosclerotic heart disease of native coronary artery without angina pectoris; E78.2 Mixed hyperlipidemia; I65.23 Occlusion and stenosis of bilateral carotid arteries; Z79.899 Other long term (current) drug therapy; Z95.5 Presence of coronary angioplasty implant and graft; Z87.891 Personal history of nicotine dependence
CPT/HCPCS: 33285; C1764

== ENCOUNTER 2021-05-16 18:14 | Emergency (ER) | payer MEDICARE ==
[~2021-05-16] VITALS: Ht 177.8 cm; Wt 83.9 kg
[~2021-05-16 18:14] MED LIST changes: -LIDOCAINE 1% INJ 50 ML (XYLOCAINE) VIAL ONE
[2021-05-16 18:24] VITALS: BP 167/94
--- NOTE | 2021-05-16 18:44 | ED Integumentary General ---
General Chief Complaint: Skin/Wound Problems Stated Complaint: POST OP, BLEEDING FROM LINK Source: patient History of Present Illness Date Seen by Provider: May 16, 2021 Allergies and Home Medications Allergies Coded Allergies: No Known Drug Allergies (Unverified , 05/25/17) Patient Home Medication List Amlodipine Besylate (Amlodipine Besylate) 5 Mg Tablet, 5 MG PO DAILY, (Reported) Entered as Reported by: LORENE COBURN on 11/10/19850 Apixaban (Eliquis) 5 Mg Tablet, 5 MG PO BID, (Reported) Entered as Reported by: LORENE COBURN on 11/10/19850 Atorvastatin Calcium (Atorvastatin Calcium) 10 Mg Tablet, 10 MG PO DAILY, (Reported) Entered as Reported by: LORENE COBURN on 11/10/19850 Clonidine HCl (Clonidine HCl) 0.1 Mg Tablet, 0.05 MG PO BID, (Reported) Entered as Reported by: LORENE COBURN on 11/10/19850 Clopidogrel Bisulfate (Clopidogrel) 75 Mg Tablet, 75 MG PO DAILY, (Reported) Entered as Reported by: LORENE COBURN on 11/10/19850 Diphenhydramine HCl (Diphenhydramine HCl) 25 Mg Capsule, 25 MG PO HS, (Reported) Entered as Reported by: LORENE COBURN on 11/10/19850 Dronedarone HCl (Multaq) 400 Mg Tablet, 400 MG PO BID, (Reported) Entered as Reported by: LORENE COBURN on 11/10/19843 Losartan Potassium (Losartan Potassium) 100 Mg Tablet, 100 MG PO DAILY, (Reported) Entered as Reported by: LORENE COBURN on 11/10/19850 Magnesium Oxide (Magnesium) 400 Mg Tablet, 400 MG PO 1200, (Reported) Entered as Reported by: LORENE COBURN on 11/10/19850 Melatonin (Melatonin) 5 Mg Tablet, 5 MG PO HS, (Reported) Entered as Reported by: LORENE COBURN on 11/10/19850 Multivitamin (Multivitamin) 1 Each Tablet, 1 EACH PO 1200, (Reported) Entered as Reported by: LORENE COBURN on 11/10/19850 Polyethylene Glycol 3350 (Miralax) 17 Gm Powd.pack, 17 GM PO 1800, (Reported) Entered as Reported by: LORENE COBURN on 11/10/19850 Potassium Chloride (Potassium Chloride) 10 Meq Capsule.er, 10 MEQ PO 1200, (Reported) Entered as Reported by: LORENE COBURN on 11/10/19850 Tamsulosin HCl (Flomax) 0.4 Mg Cap, 0.4 MG PO 1830, (Reported) Entered as Reported by: LORENE COBURN on 11/10/19850 Wheat Dextrin (Benefiber) 1 Each Powd.pack, 1 EACH PO DAILY, (Reported) Entered as Reported by: LORENE COBURN on 11/10/19850 Past Rwajcba-Plauic-Ulbjka Hx Immunizations Up To Date Tetanus Booster (TDap): Unknown Seasonal Allergies Seasonal Allergies: No Past Medical History Surgeries: Yes (hernia, cardiac ablation) Abdominal, Cardiac, Orthopedic Respiratory: No Cardiac: Yes (cardiac ablation) Atrial Fibrillation, High Cholesterol, Hypertension Neurological: No Reproductive Disorders: No Sexually Transmitted Disease: No Genitourinary: Yes Prostate Problems Gastrointestinal: Yes Abdominal Hernia, Ulcer Musculoskeletal: No Endocrine: No HEENT: No Cancer: No Psychosocial: No Integumentary: No Recent Skin Changes Blood Disorders: No Adverse Reaction/Blood Tranf: No Family Medical History Cardiovascular disease 19 FATHER 19 MOTHER Dementia 19 MOTHER FH: gastric ulcer 19 FATHER Thyroid disease DAUGHTER Heart Disease Physical Exam Vital Signs Vital Signs - First Documented 05/16/21 18:24 Temp 36.4 Pulse 69 Resp 20 B/P (MAP) 167/94 (118) Pulse Ox 98 O2 Delivery Room Air Capillary Refill : Progress/Results/Core Measures Results/Orders My Orders Orders - CONSUELO TERRY DO Lidocaine/Epi 2% 1:100,000 (Xylocaine/Ep (05/16/21 18:50) Medications Given in ED Current Medications Medications Dose Ordered Sig/Scooter Route Start Time Stop Time Status Last Admin Dose Admin Lidocaine/ Epinephrine 20 ml STK-MED ONCE .ROUTE 05/16/21 18:50 05/16/21 18:52 DC 05/16/21 18:57 20 ML Vital Signs/I&O 05/16/21 18:24 Temp 36.4 Pulse 69 Resp 20 B/P (MAP) 167/94 (118) Pulse Ox 98 O2 Delivery Room Air Departure Impression Primary Impression: Postoperative bleeding from incision Additional Impression: Anticoagulated by anticoagulation treatment Disposition: 01 HOME, SELF-CARE Condition: Stable Departure-Patient Inst. Decision time for Depature: 19:05 Referrals: LACIE AGUILAR MD (PCP/Family) Primary Care Physician Patient Instructions: Bleeding After Surgery Add. Discharge Instructions: LEAVE DRESSING IN PLACE APPLY ICE TO AREA AT 20 MINUTE INTERVALS APPLY PRESSURE TO AREA OF IT CONTINUES TO BLEED HOLD XARELTO AND PLAVIX TONIGHT. THEN RESUME YOUR MEDICATIONS PRESCRIBED TOMORROW FOLLOW UP WITH DR. MEZA TOMORROW IF YOU CONTINUE TO BLEED, RETURN TO ER IF WORSE OTHERWISE KEEP YOUR SCHEDULED APPOINTMENT WITH DR. MEZA NEXT WEEK All discharge instructions reviewed with patient and/or family. Voiced understanding. CONSUELO TERRY DO May 16, 2021 18:44
[2021-05-16] MEDS ORDERED: LIDOCAINE/EPI 2% 1:100,00 (XYLOCAINE) 20 ML VIAL ONE (18:50)
== END 2021-05-16 19:15 | disposition home or self-care (01) ==
LOC: EDUNIT# 18:14 → ER 18:16
DX: L76.22 Postprocedural hemorrhage of skin and subcutaneous tissue following other procedure (principal); Z79.01 Long term (current) use of anticoagulants
CPT/HCPCS: 12011

== ENCOUNTER → 2021-05-16 | Outpatient (CLI) | payer MEDICARE ==
[~2021-05-16] MED LIST changes: -MAGN400T8 PO; +MGX400T PO
== END ==
LOC: CARD 09:30
PROVIDERS: ATTEND Physician Assistant
DX: I08.3 Combined rheumatic disorders of mitral, aortic and tricuspid valves (principal); I10 Essential (primary) hypertension
CPT/HCPCS: 93306

== ENCOUNTER → 2021-07-11 | Outpatient (CLI) | payer MEDICARE ==
[~2021-07-11] VITALS: Ht 177 cm; Wt 81.0 kg
[~2021-07-11] MED LIST changes: +REGADENOSON 0.4 MG/5 ML SYR (LEXISCAN) IV ONE
[2021-07-11] MEDS: CATHETER FLUSH 10 ML SYR IVP PRN ×2 (12:30→13:49)
[2021-07-11 13:49] VITALS: BP 172/92
--- NOTE | 2021-07-12 07:55 | Cardiology Stress Test Report ---
Stress Test Report Date of Procedure/Referring: Date of Procedure: July 11, 2021 PCP Lacie Aguilar MD Admitting Physician Admitting Physician: Attending Physician: Lashae Marina MD Indications: cp Baseline Heart Rate: 55 Baseline Blood Pressure: Blood Pressure Systolic: 172 Blood Pressure Diastolic: 92 Baseline Vitals Vital Signs Date Time Temp Pulse Resp B/P (MAP) Pulse Ox O2 Delivery O2 Flow Rate FiO2 07/11/21 13:49 54 16 172/92 (118) 97 Room Air Baseline EKG: Baseline EKG: NSR, first-degree AV block Summary After explaining the procedure to the patient, he signed a consent and then brought to the stress nuclear laboratory. Patient received 0.4 mg Lexiscan for stress test, ECG, heart rate and blood pressure were monitored continuously. Resting and stress dose of radio tracer were injected, imaging was acquired and reviewed in short axis, horizontal long axis and vertical long axis views. TID: 1.07 SSS: 11 SDS: 7 EF: 50 1. Patient tolerated Lexiscan well 2. Frequent PVCs noted during Lexiscan injection 3. Reversible ischemia involving the mid to apical anterior wall and anterolateral wall and anterior septum 4. Normal left ventricular size, ejection fraction 50% Copy Copies To 1: LACIE AGUILAR MD, BASHAR J MD July 12, 2021 07:55
== END ==
LOC: CARD 12:45
PROVIDERS: ATTEND Internal Medicine Cardiovascular Disease
DX: I25.10 Atherosclerotic heart disease of native coronary artery without angina pectoris (principal); I10 Essential (primary) hypertension
CPT/HCPCS: 78452; 93017; A9502

== ENCOUNTER → 2021-07-20 | Outpatient (CLI) | payer MEDICARE ==
[~2021-07-20] MED LIST changes: +DOCU-143 PO; +FINA5TAB6 PO; +GADOTERATE 0.5 MMOL/ML (CLARISCAN) 15 ML VIAL IV ONE; +MTP25TSR PO; -REGADENOSON 0.4 MG/5 ML SYR (LEXISCAN) IV ONE; +RIVA20TA PO
[2021-07-20 09:15] LABS: CREATININE SERUM 0.82 MG/DL (0.60-1.30)
--- NOTE | 2021-07-20 10:42 | Diagnostic Imaging Report ---
PROCEDURE: MR imaging abdomen with and without contrast. TECHNIQUE: Multiplanar, multisequence MR imaging of the abdomen was performed with and without contrast. Additional MRC images were obtained. 3-D reformats were obtained and reviewed. INDICATION: Possible lesion on the pancreas seen on outside CT. Further evaluation. COMPARISON: 12/15/2018. FINDINGS: A cystic lesion is seen involving the distal body/tail of the pancreas measuring 2.1 x 1.0 cm. No abnormal enhancement is seen associated with this lesion. This appears to communicate with the pancreatic duct. The pancreatic duct is nondilated and measures 0.2 cm. The common bile duct is nondilated and measures 0.5 cm in diameter at the veda hepatis. No filling defects are seen to suggest choledocholithiasis. The gallbladder is unremarkable without evidence of cholelithiasis or acute cholecystitis. No focal hepatic lesions are identified. The portal vein is patent. No signal loss is seen on out of phase imaging within the liver. Spleen and adrenal glands have a normal appearance without abnormality. Bilateral simple cortical cysts are seen in the kidneys. No hydronephrosis. No evidence of solid renal mass. The included loops of bowel are nondistended. A moderate amount of stool seen in the colon. The included lung bases are clear. The heart size is enlarged. IMPRESSION: 1. Nonenhancing cystic lesion within the distal body/tail of the pancreas which appears to be connected to the pancreatic duct. 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 Consider follow-up in 12 months with MRI of the abdomen to ensure stability. 2. The common bile duct is nondilated. No evidence of cholelithiasis, cholecystitis, or choledocholithiasis. 3. Bilateral simple cortical cysts in the kidneys. No evidence of solid renal mass. Dictated by: Dictated on workstation # [id number]
== END ==
LOC: RAD 07:29
PROVIDERS: ATTEND Internal Medicine
DX: K86.2 Cyst of pancreas (principal); N28.1 Cyst of kidney, acquired; C67.9 Malignant neoplasm of bladder, unspecified
CPT/HCPCS: 36415; 74183; 82565; 84520

== ENCOUNTER 2021-07-25 11:00 | Day surgery (SDC) | payer MEDICARE ==
[~2021-07-25] VITALS: Ht 177.8 cm; Wt 83.3 kg
[2021-07-25] VITALS (7 sets, daily range): BP systolic 120–162; BP diastolic 74–88
[2021-07-25 09:44] LABS: HEMATOCRIT 42 % (40-54); HEMOGLOBIN 13.9 g/dL (13.3-17.7); MEAN CORPUSCULAR HEMOGLOBIN 29 pg (25-34); MEAN CORPUSCULAR HGB CONC 33 g/dL (32-36); MEAN CORPUSCULAR VOLUME 87 fL (80-99); MEAN PLATELET VOLUME 9.9 fL (9.0-12.2); PLATELET COUNT 170 10^3/uL (130-400); WHITE BLOOD COUNT 5.4 10^3/uL (4.3-11.0)
--- NOTE | 2021-07-25 09:48 | Diagnostic Imaging Report ---
EXAMINATION: Chest 1 view HISTORY: ABN STRESS TEST COMPARISON: 11/10/2019 FINDINGS: Heart size and pulmonary vasculature are normal. The lungs are clear without consolidation, pleural effusion, or pneumothorax. Degenerative changes of the thoracic spine. Osseous structures are otherwise intact. IMPRESSION: 1. No acute radiographic abnormality in the chest. Dictated by: Dictated on workstation # [id number]
[2021-07-25 10:01] LABS: BILIRUBIN,URINE NEGATIVE (NEGATIVE); CLARITY,URINE CLEAR; COLOR,URINE YELLOW; GLUCOSE, URINE (UA) NEGATIVE (NEGATIVE); KETONES,URINE NEGATIVE (NEGATIVE); LEUKOCYTE ESTERASE ,URINE NEGATIVE (NEGATIVE); NITRITE,URINE NEGATIVE (NEGATIVE); PROTEIN,URINE TRACE (NEGATIVE)
[2021-07-25 10:02] LABS: BACTERIA,URINE NEGATIVE /HPF; WBC,URINE RARE /HPF
[2021-07-25 10:03] LABS: ALBUMIN 4.2 GM/DL (3.2-4.5); POTASSIUM 3.5 MMOL/L (3.6-5.0)
[2021-07-25 10:05] LABS: CALCIUM 8.9 MG/DL (8.5-10.1)
[2021-07-25 10:06] LABS: TOTAL PROTEIN 7.1 GM/DL (6.4-8.2)
[2021-07-25 10:08] LABS: BILIRUBIN,TOTAL 1.1 MG/DL (0.1-1.0); INR 1.1 (0.8-1.4); PROTHROMBIN TIME PATIENT 14.8 SEC (12.2-14.7)
[2021-07-25 10:10] LABS: CREATININE SERUM 0.82 MG/DL (0.60-1.30)
[~2021-07-25 11:00] MED LIST changes: -GADOTERATE 0.5 MMOL/ML (CLARISCAN) 15 ML VIAL IV ONE; +HEParin (CATH LAB) 2,000 ML IV ONE; +LIDOCAINE 1% INJ 20 ML VIAL ONE; +NS IV 1000 ML 1,000 ML IV SCH; +NS IV 1000 ML 1,000 ML ONE
[2021-07-25] MEDS ORDERED: VERAPAMIL 5 MG/2 ML (CALAN) VIAL IV ONE (11:26)
[2021-07-25] MEDS ORDERED: MIDAZOLAM 5 MG/5 ML (VERSED) VIAL ONE (11:26)
[2021-07-25] MEDS ORDERED: fentaNYL INJ 100 MCG/2 ML AMP ONE (11:26)
[2021-07-25] MEDS ORDERED: HEParin 1000 UNIT/ML (10ML VIAL) FOR BOLUS ONE (11:27)
[2021-07-25] MEDS ORDERED: NITRO DRIP 25000 MCG/D5W 250 ML IV ONE (11:27)
--- NOTE | 2021-07-25 12:03 | Discharge Inst-Post CATH ---
Discharge Inst-CATH/EP Problems Reviewed?: Yes Post Cardiac Cath/EP D/C Inst Follow Up/Plan Appointment with Dr. Marina's office in 2 to 4 weeks <b>CARDIAC CATH/EP PROCEDURE DISCHARGE INSTRUCTIONS</b> ACTIVITY * Go Home directly and rest. * Limit activity of the leg (or wrist if it was used) for 7 days including aer obics, swimming, jogging, bicycling, etc. * Restrict stair-climbing for 7 days if possible, if not, climb up with your non-cath leg, then bring together on the same step. * Avoid lifting, pushing, pulling or excessive movement of the affected extremi ty for 7 days. * Customary sexual activity may be resumed after 2 days-use caution not to use a position that strains or causes pain to the affected extremity. * No driving for 24 hours. * NO SMOKING. * Avoid straining for bowel movements for 7 days. * Gentle walking on level ground is allowed. * Returning to work will depend on the type of procedure and the results. Your doctor will discuss this with you. CALL YOUR DOCTOR FOR ANY OF THE FOLLOWING: *If bleeding from the puncture site occurs- Apply gentle pressure to site with clean cloth and call your doctor or EMS. * If a knot or lump forms under the skin, increases in size, or causes pain. * If bruising appears to be worsening or moving further down your leg instead of disappearing. * Temperature above 101 F. CARE OF YOUR GROIN INCISION; * Bruising or purple discoloration of the skin near the puncture site is common. * You may shower only, no bathtub bathing for 5 days. Be careful to avoid slipping as your leg may feel stiff. * If a closure device was used on your femoral artery, please see the attached guide regarding care of the device and your leg. * Leave dressing on FOR 24 hours. CARE OF YOUR WRIST INCISION; * Bruising or purple discoloration of the skin near the puncture site is common. * You may shower. * DO NOT submerge wrist. * Leave dressing on FOR 24 hours. FERMIN MARINA MD Jul 25, 2021 12:03
--- NOTE | 2021-07-25 12:06 | Cardiac Cath Report ---
Cardiac Cath Report Physician (s)/Trading Manager (s) Physician FERMIN MEZA MD Pre-Procedure Diagnosis Pre-Procedure Diagnosis: Coronary artery disease Post-Procedure Note Procedure Start Date: Jul 25, 2021 Procedure Start Time: 12:03 Name of Procedure: Left heart catheterization Findings/Procedure Note PROCEDURE NOTE: 80 years old gentleman with history of coronary artery disease, hypertension hyperlipidemia, paroxysmal atrial fibrillation, had an abnormal stress test, scheduled for cardiac catheterization possible PTCA. After explaining the procedure to the patient, all pros and cons were explained, all questions were answered. The patient signed the consent and then he was placed on the cardiac catheterization laboratory. Groin was prepped SL fashion local anesthesia was used. Sheath placed in the right radial artery, I had difficulty advancing the J-wire through the brachial artery, I used baby J-wire Glidewire, advanced to the left ventricular cavity, Edwards catheter was advanced over the wire to the left ventricular cavity, pressure was measured, pullback LV to aorta was done, engaged the right coronary artery then I exchanged the catheter using long J-wire and used Marianela right diagnostic catheter, engage the left system and angiogram was done. At the end of the procedure the sheath was removed. Vascular band was used FINDINGS: Hemodynamics LV 118/10, end-diastolic pressure of 10 Aorta 121/67 mean of 82 ANATOMY: Left Main is free of obstructive disease Left Anterior Descending has a patent stent proximally, mild to moderate disease at the midportion, diagonal artery small artery with moderate disease nonobstructive disease Left Circumflex is moderate in size with mild disease nonobstructive disease Right Coronary Artery is dominant artery with mild disease nonobstructive disease LV Gram was not done, pressure was measured CONCLUSION: 1. Patent stent in the proximal LAD with mild to moderate disease in the LAD nonobstructive disease, mild to moderate disease involving the circumflex artery, right coronary artery and diagonal branch. 2. Normal left ventricular end-diastolic pressure. DISCUSSION AND RECOMMENDATION: Medical therapy is recommended no intervention is needed Anesthesia Type: Conscious Sedation Estimated blood loss (mL): 15 ml Contrast Amount: 51 ml Total Radiation Dose: 536 mGy Post-Procedure Diagnosis Post-operative diagnosis: Chest pain Coronary artery disease Hypertension Hyperlipidemia FERMIN MEZA MD Jul 25, 2021 12:06
[2021-07-25] MEDS ORDERED: NS IV 1000 ML 1,000 ML IV SCH (12:15)
== END 2021-07-25 15:20 | disposition home or self-care (01) ==
LOC: CATH 11:00 → SDC 12:20 → CATH 15:20
PROVIDERS: ATTEND Internal Medicine Cardiovascular Disease
DX: I25.10 Atherosclerotic heart disease of native coronary artery without angina pectoris (principal); I10 Essential (primary) hypertension; E78.2 Mixed hyperlipidemia; I48.0 Paroxysmal atrial fibrillation; I48.92 Unspecified atrial flutter; I65.23 Occlusion and stenosis of bilateral carotid arteries; N62 Hypertrophy of breast; N40.0 Benign prostatic hyperplasia without lower urinary tract symptoms; E03.9 Hypothyroidism, unspecified; Z87.891 Personal history of nicotine dependence; Z86.16 Personal history of COVID-19; Z95.5 Presence of coronary angioplasty implant and graft; Z79.899 Other long term (current) drug therapy; Z95.818 Presence of other cardiac implants and grafts; Z79.890 Hormone replacement therapy
CPT/HCPCS: 71045; 80053; 80061; 81000; 85027; 85610; 85730; 87081; 93005; 93458; C1769; C1894; 36415

== ENCOUNTER → 2021-11-07 | Outpatient (CLI) | payer MEDICARE ==
[~2021-11-07] MED LIST changes: -HEParin (CATH LAB) 2,000 ML IV ONE; -LIDOCAINE 1% INJ 20 ML VIAL ONE; -NS IV 1000 ML 1,000 ML IV SCH; -NS IV 1000 ML 1,000 ML ONE
--- NOTE | 2021-11-07 13:56 | Diagnostic Imaging Report ---
EXAMINATION: Chest, 2 views. HISTORY: Cough and wheezing. COMPARISON: 07/25/2021. FINDINGS: The heart size and pulmonary vasculature are normal. The lungs are clear without consolidation, pleural effusion, or pneumothorax. The osseous structures are intact. IMPRESSION: No acute radiographic abnormality in the chest. Dictated by: Dictated on workstation # [id number]
== END ==
LOC: RAD 13:24
PROVIDERS: ATTEND Physician Assistant
DX: R05.9 Cough, unspecified (principal); R06.2 Wheezing
CPT/HCPCS: 71046

== ENCOUNTER → 2022-07-01 | Outpatient (CLI) | payer MEDICARE ==
[~2022-07-01] MED LIST changes: +DIPH-1122 PO; -DIPH25CA48 PO; +METR45GE6 TP; -METR45GE9 TP; -POTA10CA43 PO; +POTA10CA44 PO
== END ==
LOC: CARD 13:11
PROVIDERS: ATTEND Internal Medicine Cardiovascular Disease
DX: I51.7 Cardiomegaly (principal); I34.0 Nonrheumatic mitral (valve) insufficiency; I35.1 Nonrheumatic aortic (valve) insufficiency
CPT/HCPCS: 93306

== ENCOUNTER → 2022-10-09 | Outpatient (CLI) | payer MEDICARE ==
[~2022-10-09] VITALS: Ht 177 cm; Wt 81.0 kg
[~2022-10-09] MED LIST changes: +CATHETER FLUSH 10 ML SYR IVP PRN; -LOSA100T57 PO; +LOSA100T58 PO; -POTA10CA44 PO; +POTA10CA84 PO
[2022-10-09 09:20] VITALS: BP 162/91
--- NOTE | 2022-10-09 16:41 | Cardiology Stress Test Report ---
Stress Test Report Date of Procedure/Referring: Date of Procedure: Oct 09, 2022 PCP Lacie Aguilar MD Admitting Physician Admitting Physician: Attending Physician: Lashae Marina MD Baseline Heart Rate: 67 Baseline Blood Pressure: Blood Pressure Systolic: 162 Blood Pressure Diastolic: 91 Vital Signs Date Time Temp Pulse Resp B/P (MAP) Pulse Ox O2 Delivery O2 Flow Rate FiO2 10/09/22 09:20 62 16 162/91 (114) 97 Room Air Baseline Vital Signs Vital Signs Date Time Temp Pulse Resp B/P (MAP) Pulse Ox O2 Delivery O2 Flow Rate FiO2 10/09/22 09:20 62 16 162/91 (114) 97 Room Air Baseline EKG: Baseline EKG: NSR Summary: After explaining the procedure and details to the patient, he signed the consent and was brought to the stress nuclear laboratory. Patient exercised on standard Alexander protocol, EKG, heart rate and blood pressure were monitored continuously, resting and stress doses of radio tracer were injected, imaging was acquired and reviewed in the short axis, horizontal long axis and vertical long axis views Patient was able to exercise for a total of 5 minutes on Alexander protocol, METs 7 Maximum heart rate 142 Maximum blood pressure 190/99 Stress EKG, Minimal nondiagnostic changes Recovery EKG, Return to baseline TID: 1.09 SSS: 9 SDS: 1 EF: 46 Conclusion: Fair exercise tolerance for 5 minutes on standard Alexander protocol, 7 METS achieving 100% of maximal expected heart rate Persistent ventricular bigeminy started early in exercise and resolved late in recovery Nondiagnostic EKG changes with exercise resolved in recovery Fixed defect involving the anterior wall and anterior lateral wall Normal left ventricular size with mild hypokinesia at the anterior lateral wall ejection fraction 46% Copy Copies To 1: LACIE AGUILAR MD, BASHAR J MD Oct 09, 2022 16:41
== END ==
LOC: CARD 07:22
PROVIDERS: ATTEND Internal Medicine Cardiovascular Disease
DX: I48.92 Unspecified atrial flutter (principal)
CPT/HCPCS: 78452; 93017; A9502